=== PATIENT | female | born 1965 | race Caucasian/White ===

== ENCOUNTER 2020-02-20 16:52 | Outpatient (CLI) | payer OTHER, SELFPAY ==
--- NOTE | ~2020-02-20 | XR_ITS ---
XR lumbar spine min 4V 02/20/2020 18:02 Indication: Low back pain Procedure: 5 views lumbar spine Comparison: 09/05/2016 Findings: There is disc narrowing at all lumbar levels. There is moderate multilevel facet hypertroph y of the mid and lower lumbar spine. There is grade 1 degenerative spondylolisthesis at L5-S1. No acu te fracture or traumatic malalignment. Vertebral body heights are maintained. Impression: 1: Moderate lumbar spondylosis. Reviewed, dictated and finalized at location A. Impression: 1: Moderate lumbar spondylosis.
--- NOTE | ~2020-02-20 | XR_ITS ---
XR hip RT min 2V 02/20/2020 18:01 Indication: Arthritis. Right hip pain. Procedure: 4 views right hip including AP pelvis Comparison: 09/05/2016 Findings: There is mild-moderate osteoarthritis of the hips. Pelvic rings are intact. No acute fractu re or traumatic malalignment. No significant soft tissue abnormality. Sacral foramen are symmetric. Impression: 1: Mild-moderate symmetric osteoarthritis of the hips. Reviewed, dictated and finalized at location A. Impression: 1: Mild-moderate symmetric osteoarthritis of the hips.
== END 2020-02-20 16:53 | disposition home or self-care (01) ==
LOC: ANHIMG 16:55
PROVIDERS: PCP Family Medicine; Visit Provider Chiropractor
DX: M19.90 Unspecified osteoarthritis, unspecified site (principal); M47.896 Other spondylosis, lumbar region; M16.0 Bilateral primary osteoarthritis of hip
CPT/HCPCS: 72110; 73502

== ENCOUNTER → 2020-07-18 09:59 | Outpatient (CLI) | payer OTHER, SELFPAY ==
--- NOTE | ~2020-07-18 | MR_ITS ---
EXAMINATION: MR lumbar spine wo con DATE: 07/18/2020 10:42 INDICATION: Low back pain. TECHNIQUE: Magnetic resonance imaging (MRI) of the lumbar spine was performed without intravenous con trast. Sequences included sagittal T2-weighted FSE, sagittal T2-weighted FS FSE, sagittal T1-weighted FSE, and axial T2-weighted FSE. COMPARISON: Lumbar spine radiographs 02/20/2020 FINDINGS: There is 5 degrees levocurvature of lumbar spine. There is 3 mm anterolisthesis of L3 on L4 and L5 on S1. There are Schmorl's nodes at most levels. There is mildly decreased disc height at L2- L3 and L3-L4, moderately decreased disc height at L4-L5, and mildly decreased disc at L5-S1. The dist al spinal cord signal intensity is normal. The conus medullaris is at L1. The following disc levels a re specifically discussed: L1-L2: The disc is bulging and has an annular fissure. There is mild bilateral facet joint osteoarthr itis. There is mild bilateral neural foraminal stenosis. There is mild central canal stenosis. L2-L3: The disc is bulging. There is mild bilateral facet joint osteoarthritis. There is mild bilater al neural foraminal stenosis. There is mild central canal stenosis. L3-L4: The disc is bulging and has an annular fissure. There is mild bilateral facet joint osteoarthr itis. There is mild bilateral neural foraminal stenosis. There is mild central canal stenosis. L4-L5: The disc is bulging and has an annular fissure. There is severe bilateral facet joint osteoart hritis. There is mild bilateral neural foraminal stenosis. There is mild central canal stenosis. L5-S1: The disc is bulging. There is severe bilateral facet joint osteoarthritis. There is mild left neural foraminal stenosis. There is mild central canal stenosis. IMPRESSION: 1. Moderate lumbar spondylosis. Reviewed, dictated and finalized at location A.
== END ==
PROVIDERS: PCP Family Medicine; Visit Provider Orthopaedic Surgery
DX: M54.5 Low back pain (principal); M47.816 Spondylosis without myelopathy or radiculopathy, lumbar region
CPT/HCPCS: 72148

== ENCOUNTER 2021-08-23 15:03 | Outpatient (CLI) | payer OTHER, SELFPAY ==
--- NOTE | ~2021-08-23 | MM_ITS ---
EXAMINATION: MM screening du BI w larry HISTORY: Screening mammogram TECHNIQUE: Craniocaudal and mediolateral oblique 3-D tomosynthesis images were obtained and synthetic 2-D images were generated. CAD analysis was submitted and interpreted. COMPARISON: 09/12/2017, 10/07/2014 bilateral digital screening mammogram examinations BREAST PARENCHYMAL COMPOSITION: There are scattered areas of fibroglandular density. FINDINGS: There is no evidence of suspicious mass, calcification, or architectural distortion to sugg est malignancy in either breast. There has been no suspicious interval change. IMPRESSION: 1. No mammographic evidence of malignancy. 2. Recommend routine screening mammography in one year. BI-RADS Category 1: Negative Reviewed, dictated and finalized at location A.
== END 2021-08-23 15:04 | disposition home or self-care (01) ==
LOC: ANHIMG 15:06
PROVIDERS: PCP Family Medicine; Visit Provider Obstetrics & Gynecology
DX: Z12.31 Encounter for screening mammogram for malignant neoplasm of breast (principal)
CPT/HCPCS: 77063; 77067

== ENCOUNTER → 2022-03-26 07:25 | Outpatient (CLI) | payer OTHER, SELFPAY ==
--- NOTE | ~2022-03-26 | XR_ITS ---
EXAMINATION: XR_RIBSBICXR1_CR DATE: 03/26/2022 08:50 INDICATION: Dorsalgia TECHNIQUE: A frontal inspiratory view of the chest and 3 views of the left ribs and 3 views of the ri ght ribs were obtained. COMPARISON: None FINDINGS: No rib fractures identified. No pneumothorax. No focal infiltrates, pleural effusion or pulmonary raji ma. Cardiomediastinal silhouette is normal. IMPRESSION: 1. No rib fracture or acute cardiopulmonary disease. Reviewed, dictated and finalized at location A.
--- NOTE | ~2022-03-26 | XR_ITS ---
EXAMINATION: XR thoracic spine 3V, XR lumbar spine 2-3V DATE: 03/26/2022 08:50 INDICATION: Dorsalgia TECHNIQUE: 1. AP, lateral and lateral swimmers views of the thoracic spine were obtained. 2. AP and lateral views of the lumbar spine and cone-down lateral view of the lumbosacral junction we re obtained. COMPARISON: None FINDINGS: Thoracic spine: 9 degrees upper thoracic levocurvature measured at T1 and T5. Sagittal alignment is normal. Vertebral body heights are normal. Moderate disc height loss at multiple levels in the thoracic lower cervical spine. No fracture identified. Paravertebral soft tissues and visualized lungs are unremarkable. Hea rt size is normal. Lumbar spine: Alignment is normal. Vertebral body heights are normal. Moderate disc height loss at L2-L3 and L4-L5. Mild disc height loss at L1-L2 and L3-L4. Moderate to severe lower lumbar facet osteoarthritis. Sacr um and bilateral sacroiliac joints are normal. No fracture identified. Normal bowel gas pattern. IMPRESSION: Moderate spondylosis of the lower cervical through the thoracic and lumbar spine. Reviewed, dictated and finalized at location A. IMPRESSION: Moderate spondylosis of the lower cervical through the thoracic and lumbar spin e.
--- NOTE | ~2022-03-26 | XR_ITS ---
EXAMINATION: XR abdomen/kub 1V DATE: 03/26/2022 08:50 INDICATION: Flank pain and abdominal pain. TECHNIQUE: A supine view of the abdomen on 2 radiographs was obtained. COMPARISON: 01/31/2006 FINDINGS: Normal bowel gas pattern with no dilated loops of bowel to suggest obstruction. No suspicious calcifi cations in the abdomen or pelvis. Lung bases are clear with mild eventration along the right hemidiap hragm. Heart size is normal. Moderate lumbar spondylosis. Bilateral hip osteoarthritis, mild on the l eft and moderate on the right. IMPRESSION: 1. Normal bowel gas pattern. Reviewed, dictated and finalized at location A.
== END ==
PROVIDERS: PCP Family Medicine; Visit Provider Physician Assistant
DX: R07.81 Pleurodynia (principal); R10.9 Unspecified abdominal pain; M47.892 Other spondylosis, cervical region; M47.894 Other spondylosis, thoracic region; M47.896 Other spondylosis, lumbar region
CPT/HCPCS: 71111; 72072; 72100; 74018

== ENCOUNTER 2023-03-31 13:47 | Outpatient (CLI) | payer OTHER, SELFPAY ==
--- NOTE | 2023-03-31 15:07 | ECG_ITS ---
Measurements Intervals [place] Rate: 76 P: 26 WV: 150 QRS: 20 QRSD: 94 T: 37 QT: 356 QTc: 401 Interpretive Statements SINUS RHYTHM INCOMPLETE RIGHT BUNDLE BRANCH BLOCK BORDERLINE ECG NO PREVIOUS ECG AVAILABLE FOR COMPARISON Electronically Signed On 03-31-2023 15:26:53 CDT by Alvin Pearson D.O.
[2023-03-31 15:39] LABS: Basophils Absolute Auto 0.1 K/mm3 (0.0-0.1); Basophils Percent Auto 0.9 % (0.2-1.2); Eosinophils Absolute Auto 0.2 K/mm3 (0-0.3); Eosinophils Percent Auto 2.9 % (0-4.4); Hemoglobin 13.4 g/dL (12.0-15.0); Immature Granulocyte Absolute 0.05 K/mm3 (0.00-0.031); Immature Granulocyte Percent A 0.9 % (0-0.5); Lymphocytes Percent Auto 23.4 % (18.3-44.2); Mean Corpuscular HGB Conc 31.9 g/dl (32-36); Mean Corpuscular Hemoglobin 29.3 pg (26-34); Mean Corpuscular Volume 91.7 fl (80-100); Mean Platelet Volume 9.3 fl (7.4-10.4); Monocytes Absolute Auto 0.6 K/mm3 (0.1-0.6); Monocytes Percent Auto 10.3 % (2.6-8.5); Neutrophils Absolute Auto 3.4 K/mm3 (1.3-6.7); Neutrophils Percent Auto 61.6 % (45.5-73.1); Platelet Count Result 318 k/mm3 (150-375); Red Blood Count 4.58 M/mm3 (4.2-5.4); Red Cell Distribution Width 12.4 % (11.5-14.5); White Blood Count 5.6 K/mm3 (4.5-10.0)
[2023-03-31 15:48] LABS: Albumin Level 4.6 g/dL (3.5-5.1); Anion Gap 4 mmol/L (8-16); Blood Urea Nitrogen 10 mg/dL (7-17); Calcium 9.2 mg/dL (8.4-10.2); Carbon Dioxide 32 mmol/L (22-30); Chloride 103 mmol/L (98-107); Estimated Glomerular Filt Rate > 60; Glucose 89 mg/dL (65-110); Potassium 3.9 mmol/L (3.4-5.0); Sodium 139 mmol/L (137-145)
[2023-03-31 15:51] LABS: Urine Cotinine NEGATIVE
== END 2023-03-31 13:48 | disposition home or self-care (01) ==
LOC: ANHSURGERY 13:51
PROVIDERS: PCP Family Medicine; Visit Provider Orthopaedic Surgery
DX: M16.11 Unilateral primary osteoarthritis, right hip (principal); Z01.818 Encounter for other preprocedural examination; I45.10 Unspecified right bundle-branch block
CPT/HCPCS: 80048; 80307; 82040; 83036; 85025; 87081; 93005

== ENCOUNTER 2023-04-14 07:42 | Outpatient (CLI) | payer OTHER, SELFPAY ==
--- NOTE | ~2023-04-14 | NM_ITS ---
EXAMINATION: NM morelia stress w perfusion DATE: 04/14/2023 09:46 INDICATION: Chest pain. TECHNIQUE: Rest images were obtained following intravenous administration of 10.9 mCi Tc99m tetrofosm in (Myoview). The patient was infused intravenously with Lexiscan (regadenoson). Then, 30.44 mCi Tc99 m tetrofosmin (Myoview) was administered intravenously, and stress images were obtained. Data was rec onstructed into short axis and horizontal and vertical long axis SPECT images. Gated SPECT images wer e also obtained. COMPARISON: None. FINDINGS: There is no definite reversible or fixed perfusion abnormality to suggest ischemia or infar ction. There is no segmental wall motion abnormality. Left ventricular ejection fraction measures 6 5%. IMPRESSION: 1. No definite ischemia or infarct. 2. Normal left ventricular ejection fraction measuring 65%. Reviewed, dictated and finalized at location A.
--- NOTE | 2023-04-14 07:54 | EST_ITS ---
Patient Info Name: Valerie Rojas Age: 57 years : 1965 Gender: Female Ht: 65 in Wt: 155 lbs BSA: 1.81 m2 HR: 71 bpm BP: 118 / 71 mmHg Heart Rhythm: Sinus Rhythm Exam Date: 04/14/2023 8:42 AM Exam Location: [facility] [place] Stress Patient Status: Outpatient Admit Date: 04/14/2023 Staff Ordering Physician: Christo Voss PA-C Attending Provider: Christo Voss PA-C Exercise Technologist: Zulema Henderson CT Exercise Physician: Alvin Pearson DO Exam Type: CA stress morelia w NM Study Info Indications R07.89 - Other chest pain Z01.810 - Encounter for preprocedural cardiovascular examination A regadenoson stress test was performed. Summary 1. 1. Negative lexiscan stress test for ischemic ST changes by ECG criteria. 2. 2. Stable hemodynamics throughout the test. 3. 3. Nuclear scan to follow and will be reported separately. Please correlate with it. 4. 4. Patient informed of the above results. Protocol: Lexiscan Stress ECG Details Stage: REST Duration (min): 0 min : 52 sec HR (bpm): 67 SBP (mmHg): 118 DBP (mmHg): 71 Stage: REST Duration (min): 5 min : 46 sec HR (bpm): 77 SBP (mmHg): 118 DBP (mmHg): 71 Stage: STAGE 1 Duration (min): 0 min : 59 sec HR (bpm): 102 SBP (mmHg): 116 DBP (mmHg): 68 Stage: RECOVERY Duration (min): 1 min : 0 sec HR (bpm): 98 SBP (mmHg): 116 DBP (mmHg): 68 Stage: RECOVERY Duration (min): 2 min : 0 sec HR (bpm): 92 SBP (mmHg): 116 DBP (mmHg): 68 Stage: RECOVERY Duration (min): 3 min : 0 sec HR (bpm): 89 SBP (mmHg): 125 DBP (mmHg): 65 Stage: RECOVERY Duration (min): 3 min : 11 sec HR (bpm): 91 SBP (mmHg): 125 DBP (mmHg): 65 Rest HR: 77 bpm Peak HR: 104 bpm Rest Sys BP: 118 mmHg Peak Sys BP: 125 mmHg Max Pred HR: 161 bpm % Max Pred HR: 65 % Target HR: 137 bpm Max RPP: 13,000 bpm*mmHg Termination Reason: Completed protocol Cardiac Symptoms: Shortness of breath, Stomach discomfort Total Time: 1 min : 0 sec Rest Castillo BP: 71 mmHg Peak Castillo BP: 65 mmHg Total Dose: 0.4 mg Resting ECG Sinus rhythm, cannot r/o septal infarct, age indeterminate. Stress ECG No ST changes. Arrhythmias None. Report Signatures
== END 2023-04-14 07:43 | disposition home or self-care (01) ==
PROVIDERS: PCP Family Medicine; Visit Provider Physician Assistant
DX: R07.9 Chest pain, unspecified (principal)
CPT/HCPCS: 78452; 93017; A9502; J2785

== ENCOUNTER 2023-04-24 00:48 | Day surgery (SDC) | payer OTHER, SELFPAY ==
[2023-03-31 14:17] VITALS: BMI 26.4
--- NOTE | 2023-03-31 14:31 | PC.NURSE ---
Report to the Outpatient Waiting Room, entrance under the green pavilion located off [facility], at time __6:00AM on date __04/24/23 . Planned Procedure Time: __7:30AM . Time changes happen often and if your time is changed the preop area will call you the afternoon before. - You and your visitor will be asked to self-screen and do not enter if you have any COVID symptoms. - A mask is optional within the hospital at this time. Patients may have clear liquids (water, carbonated beverages, clear teas, apple juice) until 3 hours prior to surgery with a maximum of 20 ounces. - No food from midnight until time of surgery Take the following medications with a SIP of water the morning of surgery: ___DULOXETINE DO NOT STOP ANY OF YOUR OTHER PRESCRIPTION MEDICATIONS PRIOR TO SURGERY ?EXCEPT THE FOLLOWING Medications to discontinue per physician ____HOLD DICLOFENAC 7 DAYS PRE-OP PER DR BIANCHI Date to take last dose____04/17/23 Please no make-up, nail mongolian, hairspray, perfume, deodorant, or body powder the day of surgery. No jewelry (including any body piercings) or valuables the day of surgery, leave them at home. Please take a shower or bath the night before, or the morning of, surgery with an antibacterial soap. Wear comfortable, loose fitting clothing. Children are encouraged to wear pajamas. - Jewelry must be removed prior to entering the operating room. Rings and piercings that are not removed may be cut off. - The hospital will not accept responsibility for valuables. - Please leave all valuables, including medications, at home the day of surgery. If you are going home after surgery, a licensed driver/sales workers must drive you home. - NO public transportation without another adult if you receive anesthesia. - We recommend that an adult stay with you for 24 hours following discharge. - We also recommend that you do not drive, make important decision, drink alcoholic beverages, or take any drugs that were not prescribed by your health care provider for at least 24 hours after your discharge time. Follow any additional instructions given to you from your surgeon. If you or anyone in your household have experienced Covid symptoms in the past week, please notify your surgeon or the nurse liaison at the phone number below for possible testing. Telephone instructions given to __PATIENT and asked if any additional questions and then verbalized understanding. Patient advised to call surgeon office or pre surgery nurse liaison [phone] if any additional questions.
[2023-04-24] VITALS (13 sets, daily range): BP systolic 88–113; BP diastolic 46–67; PULSE 77–94; RESP 8–17; TEMP 36.2–36.9; O2SAT 95–100
--- NOTE | ~2023-04-24 | XR_ITS ---
EXAMINATION: XR surgery orthopedic DATE: 04/24/2023 10:55 INDICATION: Right hip arthroplasty TECHNIQUE: Single fluoroscopic AP view of the right hip. 60 seconds of fluoroscopy. FINDINGS: There is a right total hip arthroplasty in expected position. Subcutaneous gas with soft t issue swelling are consistent with recent surgery. IMPRESSION: 1. Recent right total hip arthroplasty. Reviewed, dictated and finalized at location []
--- NOTE | ~2023-04-24 | XR_ITS ---
EXAMINATION: XR hip RT 1V w AP pelvis DATE: 04/24/2023 11:18 INDICATION: Right total hip arthroplasty TECHNIQUE: 2 views right hip FINDINGS: There is a right total hip arthroplasty in expected position. Subcutaneous gas with soft t issue swelling are consistent with recent surgery. IMPRESSION: 1. Recent right total hip arthroplasty. Reviewed, dictated and finalized at location []
[2023-04-24] MEDS: ACETAMINOPHEN 500 MG TABLET 1000 MG PO ×3 (06:25→18:11)
[2023-04-24] MEDS: VANCOMYCIN 1,000 MG/NS 250 ML BAG 250 MG IVPB (06:48)
[2023-04-24] MEDS: LACTATED RINGERS 1,000 ML 30 ML IV CONT ×3 (06:48→11:40)
--- NOTE | 2023-04-24 06:50 | P.PNAN_ITS ---
Anes - Initial Pre Proc Eval Procedure: Operation Date: 04/24/23 07:30 Proposed Procedures p Right Total Hip Arthroplasty, Anterior Approach - Margarito Champion MD Date/Time: 04/24/23 06:50 Surgeon: Margarito Champion MD Pre Op Diagnosis: O.A. right Hip Patient Data Age: 58 Gender: F Height: 1.65 m Weight: 72.1 kg Allergies Allergy/AdvReac Type Severity Reaction Status Date / Time No Known Allergies Allergy Verified 04/24/23 06:15 Home Medications Medication Instructions Recorded Confirmed Type diclofenac sodium 75 mg 75 mg PO BID 03/31/23 04/24/23 History tablet,delayed release duloxetine 30 mg capsule,delayed 30 mg PO EVERY OTHER DAY 03/31/23 04/24/23 History release (Cymbalta) lamotrigine 150 mg tablet 150 mg PO HS 03/31/23 04/24/23 History Patient hx anesthesia problems: none Family hx anesthesia problems: none Results Review: All pre-operative results and documents have been reviewed as part of the pre- operative evaluation. [facility] Past Medical History Medical History (Updated 04/24/23 @ 06:51 by Marcelo Ponce MD) Depression Family History Family History Father Hypertension Family history of coronary artery disease Social History Social History Smoking packs per day: 0.5 Smoking cigarettes per day: 10.0 Years smoked: 5 Smoking pack-years: 2.50 Smoking status: Former smoker Tobacco type: cigarettes Smoking end date: 05/06/95 Alcohol intake: never Substance use: never Living arrangements: with family Additional living arrangements comments: [place] Occupation/Education: occupation Gender identity (if verbalized by the patient): Female Sexual Orientation (if Verbalized by the Patient): Straight or Heterosexual Spiritual care concerns: No Anes - Eval Final PreProcedure Day of Procedure 04/24/23 06:50 Patient weight: overweight Heart: regular rate and rhythm Lungs: clear to auscultation Airway: Mallampati scale class II Neurological: alert and oriented Last oral intake: >/= 8 hours ASA classification: II Emergent: no Anesthetic plan: proceed Anesthesia type and monitoring: general ETT Results Review: All pre-operative results and documents have been reviewed as part of the pre- operative evaluation. Informed Consent: The patient's anesthetic plan and its attendant risks and benefits were discussed with the patient/family/POA. Questions were solicited and answers provided to the satisfaction of the patient/family/POA.
[2023-04-24] MEDS: TRANEXAMIC ACID 1,000MG/ISO100 1,000 MG/100 ML BAG 200 MG IVPB (07:12)
--- NOTE | 2023-04-24 07:17 | WPDHPUPDATE1 ---
History and Physical Update Update Date/Time: 04/24/23 07:17 History and Physical has been reviewed, including an updated exam of the patient. There are NO changes in the patient's condition. Risks, benefits, and alternatives have been discussed and questions answered. Patient agrees to proceed with procedure.
--- NOTE | 2023-04-24 07:29 | P.HP_ITS ---
H&P: HPI History of Present Illness Date/Time: 04/24/23 07:29 Chief Complaint: right hip DJD Narrative: 58 y/o who presents for right anterior total hip arthroplasty. She has severe arthritis in the hip and has failed non-surg treatment Review of Systems Review of Systems: All systems reviewed & are unremarkable except as noted in HPI and below PMFSH Past Medical History Medical History (Updated 04/24/23 @ 06:51 by Marcelo Ponce MD) Depression Family History Family History Father Hypertension Family history of coronary artery disease Social History Social History Smoking packs per day: 0.5 Smoking cigarettes per day: 10.0 Years smoked: 5 Smoking pack-years: 2.50 Smoking status: Former smoker Tobacco type: cigarettes Smoking end date: 05/06/95 Alcohol intake: never Substance use: never Living arrangements: with family Additional living arrangements comments: [place] Occupation/Education: occupation Gender identity (if verbalized by the patient): Female Sexual Orientation (if Verbalized by the Patient): Straight or Heterosexual Spiritual care concerns: No Meds Home Medications and Allergies Home Medications Medication Instructions Recorded Confirmed Type diclofenac sodium 75 mg 75 mg PO BID 03/31/23 04/24/23 History tablet,delayed release duloxetine 30 mg capsule,delayed 30 mg PO EVERY OTHER DAY 03/31/23 04/24/23 History release (Cymbalta) lamotrigine 150 mg tablet 150 mg PO HS 03/31/23 04/24/23 History Allergies Allergy/AdvReac Type Severity Reaction Status Date / Time No Known Allergies Allergy Verified 04/24/23 06:15 Vital Signs Vital Signs - 24 hr 04/24/23 06:51 Temperature 36.3 C L Pulse Rate 87 Respiratory Rate 16 Blood Pressure 106/64 Pulse Oximetry 99 Oxygen Delivery Room Air Exam Narrative: 58 y/o female, alert, she has severe fabiana n with ROM of right hip Resp: Auscultation: clear to auscultation bilaterally Cardio: Rate: regular rate Rhythm: regular rhythm Assessment and Plan Assessment and plan (1) Osteoarthritis of right hip: Code(s): M16.11 - Unilateral primary osteoarthritis, right hip Status: Acute Plan 58 y/o female with severe OA right hip. Patient feels she is ready for total hip arthroplasty. Surgical procedure as well as risks and complications were discussed and we will proceed.
[2023-04-24] MEDS: ceFAZolin 2 GM/D5W 50 ML 2 GM/50 ML BAG IVPB (07:40)
[2023-04-24] MEDS: ceFAZolin SODIUM 1 GM VIAL 3 GM (08:15)
[2023-04-24] MEDS: TRANEXAMIC ACID 1,000 MG/10 ML AMPUL 1000 MG IV PUSH (10:45)
[2023-04-24] MEDS: KETOROLAC 15 MG/ML VIAL (*BKC) IV PUSH ×3 (10:47→22:26)
[2023-04-24] MEDS: ceFAZolin SODIUM 1 GM VIAL 2 GM IV PUSH (10:48)
--- NOTE | 2023-04-24 11:02 | W.PM.PROC2 ---
Procedure Note - Detailed Date of Procedure 04/24/23 Pre-op Diagnosis O.A. right Hip Post-op Diagnosis Same Procedure Performed Right anterior approach right total hip arthroplasty Surgeon Margarito Champion MD [facility] Anesthesia General Description of Procedure Patient was brought to the operating room and general anesthesia was administered. She received 2 g of Ancef weight based vancomycin 1 g of tranexamic acid preoperatively. The feet were padded and the boots applied [facility] and the right hip prepped draped usual fashion. A 10 cm longitudinal incision was made starting 3 cm lateral to the ASIS. Dissection was carried down through the subcutaneous fat exposing the fascia over the tensor fascia lior which was longitudinally incised and elevated off the anterior 1/2 of the TFL muscle. The interval between TFL and rectus femoris was developed. Crossing vessels of ascending lateral femoral circumflex vessels were ligated with suture divided. A retractor was placed anterior to the capsule the hip the hip abducted internally rotated and the gluteus minimus elevated off the lateral capsule. Inverted T capsulotomy was performed. Femoral neck osteotomy was made according to preoperative templating. Femoral head was removed and measured 48 mm in diameter. It was severely arthritic with huge hypertrophic peripheral osteophytes particularly anteriorly. The acetabular labrum was excised and the fovea which was extremely deep due to medial osteophyte that was prominent was removed and we curetted the remaining articular cartilage in the areas present. X-ray fluoro showed that our neck cut was a little bit long still. We removed about 3 or 4 mm of medial neck at this time. The femur was externally rotated extended and the interval between conjoined tendon and piriformis incised allowing the piriformis to flipped and this allowed the conjoined tendon to recess a little bit giving adequate mobilization anteriorly with the proximal femur. With the femur back in horizontal position traction external rotation acetabular exposure. We medialized under fluoroscopic guidance with the 44 Reamer and worked up to the 47 taking care to maintain central reaming. The cancellous bone inside the acetabulum was quite soft but the rim bone was dense and cortical like. We trialed with a 47 and was a good fit. We carefully reamed with a 48 to eliminate the peripheral lip at the introitus and the 48 trial had a good fit. We chose the 48 pinnacle cup which was impacted at 40? of abduction and anteversion such that the anterior rim was just under the anterior edge of the acetabulum posterior superiorly it was about 4 or 5 mm proud. Posteriorly it was about 2 mm proud. An excellent Press-Fit was achieved. We did place a screw into the ilium and seated the 32 inner diameter polyethylene liner. The leg was externally rotated and extended with the table hook in place. The cancellous bone inside the femur was on the softer side making access straightforward. We broached up to a size 5 and there was still ample rotation of play we broached the 6 and this had no rotational play with torque from the incised done. We trialed with the +5 standard offset. This lengthened her about 5-6 mm more than the other side I could see that the top of the broach was not low the saddle. The canal fill looked very good with the 6 broach. We calcar planed and countersunk the broach another 2.5-3 mm and trialed again with a +5. We were still about 3 or 4 mm long it appeared on the fluoroscopic AP pelvis and the Shuck was looser than desired. I could dislocate her hip with thumb and index finger on the bone hook from an externally rotated position. Therefore, we trialed with the high offset neck and the +1 head and this gave us a more appropriate feel with Shuck. It was certainly not tight. Under fluoro this gave us an offset matched the other side and lengthened
--- NOTE | 2023-04-24 11:24 | SUR.OPER ---
total u/a 150ml clear yellow EBL cell saver 250ml blood return
[2023-04-24] MEDS: fentaNYL CITRATE INJ (*CRX) 100 MCG/2 ML VIAL 25 MCG IV PUSH ×4 (11:25→11:39)
--- NOTE | 2023-04-24 12:04 | P.OPB_ITS ---
Procedure Note - Brief Procedure Note - Brief Date of procedure: 04/24/23 O.A. right Hip Procedure performed: Right anterior total hip arthroplasty Surgeon: JAX Joseph Description of procedure: 58-year-old female underwent right anterior total hip arthroplasty on 04/24. I was involved the procedure Including positioning the patient on OR table and 1 st assisting to the time of surgery. total time spent was 3-1/2 hours. Urine output (mL): -150.0
--- NOTE | 2023-04-24 12:06 | PM.IMHP ---
H&P: HPI History of Present Illness Date/Time: 04/24/23 12:06 Chief Complaint: Right hip DJD Narrative: 58-year-old female presents today for right anterior total hip arthroplasty. Patient has been having progressively worsening symptoms over the last 2 years. At this point she has severe type 1 osteoarthritis and mild acetabular dysplasia. She has rather severe symptoms on a daily basis. She has limited range of motion of the hip as well. She feels that her symptoms have not improved from the use of anti-inflammatories. She is miserable at this point and feels she is ready to proceed with total hip arthroplasty. Review of Systems Review of Systems: All systems reviewed & are unremarkable except as noted in HPI and below PMFSH Past Medical History Medical History Depression Family History Family History Father Hypertension Family history of coronary artery disease Social History Social History Smoking packs per day: 0.5 Smoking cigarettes per day: 10.0 Years smoked: 5 Smoking pack-years: 2.50 Smoking status: Former smoker Tobacco type: cigarettes Smoking end date: 05/06/95 Alcohol intake: never Substance use: never Living arrangements: with family Additional living arrangements comments: [facility] Occupation/Education: occupation Gender identity (if verbalized by the patient): Female Sexual Orientation (if Verbalized by the Patient): Straight or Heterosexual Spiritual care concerns: No Meds Home Medications and Allergies Home Medications Medication Instructions Recorded Confirmed Type diclofenac sodium 75 mg 75 mg PO BID 03/31/23 04/24/23 History tablet,delayed release duloxetine 30 mg capsule,delayed 30 mg PO EVERY OTHER DAY 03/31/23 04/24/23 History release (Cymbalta) lamotrigine 150 mg tablet 150 mg PO HS 03/31/23 04/24/23 History Allergies Allergy/AdvReac Type Severity Reaction Status Date / Time No Known Allergies Allergy Verified 04/24/23 06:15 Vital Signs Vital Signs - 24 hr 04/24/23 06:51 04/24/23 11:15 04/24/23 11:30 Temperature 36.3 C L 36.2 C L Pulse Rate 87 87 85 Respiratory Rate 16 12 12 Blood Pressure 106/64 92/55 L 97/67 L Pulse Oximetry 99 100 100 Oxygen Delivery Room Air Simple Face Mask Simple Face Mask Oxygen Flow Rate 8 8 04/24/23 11:45 04/24/23 12:00 Temperature Pulse Rate 84 85 Respiratory Rate 8 L 12 Blood Pressure 99/61 L 93/56 L Pulse Oximetry 100 95 Oxygen Delivery Simple Face Mask Room Air Oxygen Flow Rate 8 Exam Narrative: 58-year-old female alert pleasant. She is 5 ft 5 and 157 lb. Hip range of motion on the right, flexion to 100, she has about a 10 degree flexion contracture when she is supine. Internal rotation to 15? external rotation to 30. Range of motion causes her significant groin pain anterior thigh pain. There is no tenderness over the greater trochanter. She has normal abduction strength lateral position. 2+ dorsalis pedis and posterior artery pulse palpable. No numbness or tingling in the right lower extremity. Resp: Auscultation: clear to auscultation bilaterally Cardio: Rate: regular rate Rhythm: regular rhythm Assessment and Plan Assessment and plan (1) Osteoarthritis of right hip: Code(s): M16.11 - Unilateral primary osteoarthritis, right hip Status: Acute Plan 4-year-old female who has severe osteoarthritis of the right hip with severe symptoms on a daily basis. Again she feels this point she is ready proceed with total arthroplasty. Surgical procedure as well as risks and complications were discussed in detail questions were answered and we will proceed. She will stop her diclofenac 1 week prior to surgery. She will see her primary care doctor for pre-surgical clearance. Her nasal swab
--- NOTE | 2023-04-24 12:33 | ADMGEN ---
This patient, Valerie Rojas, was admitted to Medical Room 252-01. Patient/family oriented to hospital policies and general routines including ID bracelet, bed and alarms, visiting hours, pain management, procedures, bathroom and other care routines, personal items, smoking policy, room service/diet, and visiting hours. Information on how to activate the Rapid Response Team has been discussed. Patient/Family are encouraged to report perceived risks to care and to ask questions if they do not understand what they are told or what they should do.
[2023-04-24] MEDS: SODIUM CHLORIDE 0.9% IV 1,000 ML 125 ML IV CONT (13:15)
[2023-04-24] MEDS: LACTATED RINGERS 500 ML 999 ML IV CONT (15:17)
[2023-04-24 15:19] LABS: Hematocrit 35.5 % (37.0-47.0); Hemoglobin 11.3 g/dL (12.0-15.0)
[2023-04-24] MEDS: ONDANSETRON INJ 4 MG/2 ML VIAL IV PUSH ×2 (16:00→20:10)
[2023-04-24] MEDS: ceFAZolin 1 GM/NS 50 ML 1 GM/50 ML BAG IVPB ×2 (16:22→23:56)
[2023-04-24] MEDS: DULoxetine HCL 30 MG CAPSULE.DR PO (16:22)
[2023-04-24] MEDS: oxyCODONE HCL (*CRX) 5 MG TAB IR PO ×2 (16:22→21:03)
--- NOTE | 2023-04-24 16:28 | PCPTNOTE ---
On 04/24/23, the student, [Sharyn Smith], provided care and completed [facility] documentation on this patient. I have reviewed the student's documentation and agree with the findings.
[2023-04-24] MEDS: VANCOMYCIN 1,000 MG/NS 250 ML 1,000 MG/250 ML BAG 250 MG IVPB (18:11)
--- NOTE | 2023-04-24 19:23 | PM.IMCN ---
Assessment and Plan Assessment and plan (1) Status post total hip replacement, right: Code(s): Z96.641 - Presence of right artificial hip joint Status: Acute Assessment and Plan: Postop care per Orthopedic surgery DVT prophylaxis as per orthopedic surgery the patient is on Eliquis. The patient had some postop nausea. I offered a scopolamine patch if needed pain management as per orthopedic surgeon. Continue with IV fluids for now as her blood pressure was low. The patient was also having some nausea and had poor oral intake. PT OT per orthopedic physician (2) Anxiety and depression: Code(s): F41.9 - Anxiety disorder, unspecified; F32.A - Depression, unspecified Status: Acute Assessment and Plan: Continue with Cymbalta and Lamictal Plan Thank you for allowing us to consult on this patient. Will continue Co managed along side of you. HPI Data of Consult Consult date: 04/24/23 Requesting Physician: Margarito Champion MD Primary Care Provider: Ramón Soria MD Consult Narrative Narrative: Valerie Rojas is a 58 year old female who has had severe arthritis to her right hip. She has failed nonsurgical treatment. The patient underwent a right anterior total hip arthroplasty. Please see operative report and anesthesia. The patient had some postop nausea. The patient also became hypotensive. IV fluids continued. The hospitalist group was consulted due to her nausea and hypotension. Date of consult 04/24/2023. Review of Systems Review of Systems: All systems reviewed & are unremarkable except as noted in HPI and below Constitutional: Constitutional: Reports as per HPI and Reports no additional constitutional complaints Eyes: Eyes: Reports as per HPI and Reports no additional eye complaints ENT: Reports system reviewed and no additional complaints, except as documented and Reports Normal hearing present Cardiovascular: Cardiovascular: Reports no additional cardiovascular complaints Respiratory: Respiratory: Reports no additional respiratory complaints and Reports no additional respiratory complaints Gastrointestinal: Gastrointestinal: Reports as per HPI and Reports no additional gastrointestinal complaints Musculoskeletal: Musculoskeletal: Reports no additional musculoskeletal complaints Integumentary/Breasts: Skin/Breast: Reports system reviewed and no additional complaints, except as docu and Reports as per HPI Neurologic: Reports system reviewed and no additional complaints, except as documented, Reports as per HPI and Reports Normal hearing present Psychiatric: Psychiatric: Reports no additional psychiatric complaints and Reports as per HPI Endocrine: Endocrine: Reports no additional endocrine complaints Hematologic/Lymphatic: Hematologic/Lymphatic: Reports no additional hematologic/lymphatic complaints Allergic/Immunologic: Allergic/Immunologic: Reports no additional allergic/immunologic complaints [facility] Past Medical History Medical History (Updated 04/24/23 @ 23:31 by Yue Clement NP) Anxiety and depression Depression HLD (hyperlipidemia) Surgical History Surgical History (Updated 04/24/23 @ 23:32 by Yue Clement NP) H/O elbow surgery History of total hip replacement Status post total hip replacement, right Family History Family History Father Hypertension Family history of coronary artery disease Social History Social History (Updated 04/24/23 @ 23:33 by Yue Clement NP) Social History: The patient is and lives with her . She has 2 children. She works for the [employer]. Lifelong nonsmoker. She does not use any alcohol marijuana or illicit drugs. Code status full code Smoking packs per day: 0.5 Smoking cigarettes per day: 10.0 Years smoked: 5 Smoking pack-years: 2.50 Smoking status: Never smoker Tobacco type: cigarettes Smo
[2023-04-24] MEDS: SENNA/DOCUSATE SODIUM TABLET 2 TAB PO (21:03)
[2023-04-24] MEDS: lamoTRIgine 50 MG TABLET 150 MG PO (21:03)
[2023-04-24] MEDS: FAMOTIDINE 20 MG TABLET PO (21:13)
[2023-04-24] MEDS: SIMETHICONE 80 MG TAB.CHEW PO (22:26)
[2023-04-25] MEDS: SODIUM CHLORIDE 0.9% IV 1,000 ML 125 ML IV CONT (00:22)
[2023-04-25] MEDS: ACETAMINOPHEN 500 MG TABLET 1000 MG PO ×3 (00:30→11:42)
[2023-04-25] MEDS: oxyCODONE HCL (*CRX) 5 MG TAB IR PO ×2 (00:31→05:42)
[2023-04-25 05:31] VITALS: BP 100/51; PULSE 97; RESP 17; TEMP 36.9; O2SAT 95
[2023-04-25 05:42] LABS: Basophils Percent Auto 0.2 % (0.2-1.2); Hematocrit 28.9 % (37.0-47.0); Hemoglobin 9.2 g/dL (12.0-15.0); Immature Granulocyte Absolute 0.02 K/mm3 (0.00-0.031); Immature Granulocyte Percent A 0.3 % (0-0.5); Lymphocytes Percent Auto 9.3 % (18.3-44.2); Mean Corpuscular HGB Conc 31.8 g/dl (32-36); Mean Corpuscular Hemoglobin 29.8 pg (26-34); Mean Corpuscular Volume 93.5 fl (80-100); Mean Platelet Volume 9.4 fl (7.4-10.4); Monocytes Absolute Auto 0.7 K/mm3 (0.1-0.6); Monocytes Percent Auto 11.4 % (2.6-8.5); Neutrophils Absolute Auto 5.1 K/mm3 (1.3-6.7); Neutrophils Percent Auto 78.8 % (45.5-73.1); Platelet Count Result 164 k/mm3 (150-375); Red Blood Count 3.09 M/mm3 (4.2-5.4); Red Cell Distribution Width 12.6 % (11.5-14.5); White Blood Count 6.5 K/mm3 (4.5-10.0)
[2023-04-25 05:52] LABS: Anion Gap 3 mmol/L (8-16); Blood Urea Nitrogen 7 mg/dL (7-17); Calcium 7.5 mg/dL (8.4-10.2); Carbon Dioxide 25 mmol/L (22-30); Chloride 111 mmol/L (98-107); Estimated CRCL calculation 66 ml/min; Estimated Glomerular Filt Rate > 60; Glucose 105 mg/dL (65-110); Potassium 3.8 mmol/L (3.4-5.0); Sodium 139 mmol/L (137-145)
[2023-04-25 06:15] LABS: Vitamin D 25 Hydroxy 21.3 ng/mL
--- NOTE | 2023-04-25 06:27 | PM.PNORT ---
Subjective Subjective Date/Time Seen: 04/25/23 06:27 Interval history: Postop day 1 patient is alert. Blood pressure has been running a little low. She was low during the time of surgery which is most likely her norm. She is asymptomatic from the blood pressure. She was up to the restroom multiple times overnight in tolerating this without any symptoms. CBC is noted this morning. Vitamin-D was low and we will supplement that. Drain is out and dressing is dry. Neurovascularly she is intact. Pain is well controlled. We did decrease her oxycodone 2.5 mg. Plan have therapy work with the patient this morning and again this afternoon if she remains doing well plan will be to discharge her home this afternoon. Objective Data Vital Signs Vital Signs: Vital Signs - 24 hr 04/24/23 06:51 04/24/23 11:15 04/24/23 11:30 Temperature 36.3 C L 36.2 C L Pulse Rate 87 87 85 Respiratory Rate 16 12 12 Blood Pressure 106/64 92/55 L 97/67 L Pulse Oximetry 99 100 100 Oxygen Delivery Room Air Simple Face Mask Simple Face Mask Oxygen Flow Rate 8 8 04/24/23 11:45 04/24/23 12:00 04/24/23 12:13 Temperature Pulse Rate 84 85 81 Respiratory Rate 8 L 12 12 Blood Pressure 99/61 L 93/56 L 94/59 L Pulse Oximetry 100 95 95 Oxygen Delivery Simple Face Mask Room Air Room Air Oxygen Flow Rate 8 04/24/23 12:30 04/24/23 12:45 04/24/23 13:15 Temperature 36.4 C 36.6 C 36.3 C L Pulse Rate 82 77 78 Respiratory Rate 16 16 16 Blood Pressure 89/56 L 88/62 L 92/46 L Pulse Oximetry 99 100 98 Oxygen Delivery Oxygen Flow Rate 04/24/23 15:32 04/24/23 14:15 04/24/23 18:13 Temperature 36.4 C L 36.6 C Pulse Rate 77 85 Respiratory Rate 17 17 Blood Pressure 91/49 L 105/55 L Pulse Oximetry 100 100 Oxygen Delivery Room Air Oxygen Flow Rate 04/24/23 21:13 04/24/23 23:20 04/25/23 05:31 Temperature 36.9 C 36.8 C 36.9 C Pulse Rate 91 94 97 Respiratory Rate 17 17 17 Blood Pressure 113/55 L 101/51 L 100/51 L Pulse Oximetry 98 98 95 Oxygen Delivery Oxygen Flow Rate Intake/Output Intake/Output: Intake & Output 04/22/23 04/23/23 04/24/23 04/25/23 23:59 23:59 23:59 23:59 Intake Total 1490 1400 Output Total 50 30 Balance 1440 1370 Meds/Results Medications: Active Medications Generic Name Dose Route Start Last Admin Trade Name Freq PRN Reason Stop Dose Admin Acetaminophen 1,000 mg 04/24/23 12:15 04/25/23 05:41 Acetaminophen 500 Mg Tablet PO 1,000 mg Q6HR SHMUEL Administration Apixaban 2.5 mg 04/25/23 09:00 Apixaban 2.5 Mg Tablet PO Q12HR SHMUEL Celecoxib 200 mg 04/25/23 09:00 Celecoxib 200 Mg Capsule PO DAILY SHMUEL Cephalexin HCl 500 mg 04/25/23 12:00 Cephalexin 500 Mg Capsule PO Q6HR SHMUEL Duloxetine HCl 30 mg 04/24/23 13:00 04/24/23 16:22 Duloxetine Hcl 30 Mg Capsule.Dr PO 30 mg Q48H SHMUEL Administration Ergocalciferol 50,000 units 04/25/23 09:00 Ergocalciferol 50,000 Units Capsule PO WEEKLY SHMUEL Famotidine 20 mg 04/24/23 21:00 04/24/23 21:13 Famotidine 20 Mg Tablet PO 20 mg Q12HR SHMUEL Administration Hydroxyzine HCl 50 mg 04/24/23 12:15 Hydroxyzine Hcl 25 Mg Tablet PO Q4H PRN Itching Cefazolin Sodium 1 gm in 50 mls @ 100 mls/hr 04/24/23 16:00 04/25/23 00:25 Ancef 1 Gm/Ns 50 Ml IVPB 04/25/23 08:29 Infused Q8H SHMUEL Infusion Vancomycin HCl 1,000 mg in 250 mls @ 250 mls/hr 04/24/23 19:00 04/24/23 20:00 Vancomycin 1,000 Mg/Ns 250 Ml IVPB 04/25/23 07:59 Infused Q12H SHMUEL Infusion Sodium Chloride 1,000 mls @ 125 mls/hr 04/24/23 12:50 04/25/23 00:22 Normal Saline Iv IV CONT 125 mls/hr .Q8H SHMUEL Administration Lamotrigine 150 mg 04/24/23 21:00 04/24/23 21:03 Lamotrigine 50 Mg Tablet PO 05/24/23 20:59 150 mg HS SHMUEL Administration Morphine Sulfate 2 mg 04/24/23 12:15 Morphine Sulfate (*Crx) 2 Mg/Ml Inj IV PUSH Q3H PRN Pain Rated 7-10 Naloxone HCl 0.1
[2023-04-25] MEDS: VANCOMYCIN 1,000 MG/NS 250 ML 1,000 MG/250 ML BAG 250 MG IVPB (06:29)
--- NOTE | 2023-04-25 06:33 | PM.DS ---
DS: Admitting Diagnosis Discharge Date 04/25 Admitting Diagnosis Right hip DJD DS: Discharge Diagnosis Discharge Diagnosis (1) Osteoarthritis of right hip: Code(s): M16.11 - Unilateral primary osteoarthritis, right hip Status: Acute DS: Summary Hospital Course Hospital Course: 58-year-old female who underwent right anterior total hip arthroplasty on 04/24. Underwent the procedure without complications. Postoperatively she has been afebrile vital signs are stable. Blood pressure was running approximately 100 over 50s. Patient had the same blood pressure through the time of surgery as well. She was given extra fluids during surgery. She has been asymptomatic from the blood pressure. It is most likely felt this is where she typically will run. She is weight-bearing as tolerated. She was up to the restroom multiple times a day surgery and is comfortable. Pain is well controlled she is on Tylenol as well as oxycodone 2.5 mg. She is on Eliquis for DVT prophylaxis. Postop day 1 her drain was out dressing was dry. Neurovascularly she is intact. She is going to go home with 1 week of Keflex as well Senokot and MiraLax. Patient's vitamin-D was low at 21 and we are supplementing this with high-dose vitamin-D 77593 units weekly. We will also have her start taking Citracal with vitamin-D over the counter. Her bones will soft time surgery and we discussed with her that will set up a bone density when she is doing little better during her recovery. Patient was advised any questions or concerns she is to call the office otherwise we will see her at her appointed date. Time Spent with Patient Time attestation: Total time spent providing and/or coordinating discharge services: DS: Data Data Completed and Pending Labs on day of discharge: Labs from last 24 hours 04/25/23 04/24/23 04/24/23 05:16 15:06 06:33 WBC 6.5 RBC 3.09 L Hgb 9.2 L 11.3 L Hct 28.9 L 35.5 L MCV 93.5 MCH 29.8 MCHC 31.8 L RDW 12.6 Plt Count 164 MPV 9.4 Immature Gran % (Auto) 0.3 Neut % (Auto) 78.8 H Lymph % (Auto) 9.3 L Kaufman % (Auto) 11.4 H Eos % (Auto) 0.0 Baso % (Auto) 0.2 Lymph # (Auto) 0.60 L Kaufman # (Auto) 0.7 H Eos # (Auto) 0.0 Baso # (Auto) 0.0 Abs Immat Gran (auto) 0.02 Absolute Neuts (auto) 5.1 Absolute Nucleated RBC 0.0 Nucleated RBC % 0.0 Sodium 139 Potassium 3.8 Chloride 111 H Carbon Dioxide 25 Anion Gap 3 L BUN 7 Creatinine 0.70 Estim Creat Clear Calc 66 Estimated GFR > 60 Glucose 105 Calcium 7.5 L Vitamin D 25-Hydroxy 21.3 Blood Type O Positive Antibody Screen Negative Discharge Plan Discharge Patient Disposition: Home, Self-Care Discharge Instructions: MARGARITO CHAMPION M.D [facility], [place] [id number] [place] [address] POST-OPERATIVE DISCHARGE INSTRUCTIONS ANTERIOR TOTAL HIP ARTHROPLASTY 1. Move toes/feet up and down every hour while awake. 2. Be up walking every hour while awake. 3. Use cane in hand opposite of side of hip surgery or walker as comfort allows. Avoid sitting in a chair unless eating, receiving visitors or using the toilet. 4. When resting, lie on back with leg elevated above heart to minimize swelling. Significant swelling could indicate a blood clot and if this occurs, call the office (or go to the ER) to have a venous ultrasound performed. 5. Wound Care: Keep dry sponge on wound for 2 weeks. Use minimal tape. 6. Follow weight bearing status as instructed. 7. May shower with dressing off. Stand Alone Forms: General Discharge Instructions Follow-up/Referrals: Margarito Champion MD [Physician] - Keep Reg. Scheduled Appt. Discharge Medications: New acetaminophen 500 mg Tablet 1,000 mg PO Q6HR Qty: 90 0RF Eliquis 2.5 mg Tablet 2.5 mg PO Q12HR Qty: 70 0RF celecoxib [Celebrex] 200 mg
[2023-04-25 07:43] VITALS: RESP 18; O2SAT 95
[2023-04-25] MEDS: ceFAZolin 1 GM/NS 50 ML 1 GM/50 ML BAG IVPB (07:43)
[2023-04-25] MEDS: ERGOCALCIFEROL 50,000 UNITS CAPSULE 50000 UNITS PO (09:06)
[2023-04-25] MEDS: FAMOTIDINE 20 MG TABLET PO (09:07)
[2023-04-25] MEDS: SIMETHICONE 80 MG TAB.CHEW PO ×2 (09:08→13:25)
[2023-04-25] MEDS: oxyCODONE HCL (*CRX) 2.5 MG TAB IR PO ×2 (09:12→13:27)
[2023-04-25] MEDS: APIXABAN 2.5 MG TABLET PO (09:22)
[2023-04-25] MEDS: CELECOXIB 200 MG CAPSULE PO (09:22)
[2023-04-25 10:28] VITALS: BP 102/58; PULSE 86; RESP 16; TEMP 36.8; O2SAT 96
[2023-04-25] MEDS: CEPHALEXIN 500 MG CAPSULE PO (11:42)
--- NOTE | 2023-04-25 12:10 | PM.IMPN ---
Progress Note: A&P Assessment and Plan (1) Status post total hip replacement, right: Code(s): Z96.641 - Presence of right artificial hip joint Status: Acute Assessment and Plan: Postop care per Orthopedic surgery DVT prophylaxis as per orthopedic surgery the patient is on Eliquis. postop nausea improved. 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 pain management as per orthopedic surgeon. EBL 775 mL and received 1 unit PRBC in PACU. BP 102/58, HR 86. Hgb 9.2 PT/OT per ortho. WBAT. Patient plans to go home today. (2) Anxiety and depression: Code(s): F41.9 - Anxiety disorder, unspecified; F32.A - Depression, unspecified Status: Chronic Assessment and Plan: Continue with Cymbalta and Lamictal (3) Vitamin D deficiency: Code(s): E55.9 - Vitamin D deficiency, unspecified Status: Acute Assessment and Plan: Vitamin D 25-OH 21.3. D2 50,000 units weekly plus Oscal-Vit D recommended per Ortho. (4) Anemia due to blood loss, acute: Code(s): D62 - Acute posthemorrhagic anemia Status: Acute Assessment and Plan: Preop Hgb 13.4. EBL 775 mL with 1 unit PRBC given in PACU. Hgb 9.2 today. Monitor for bleeding. Plan Thank you for allowing us to consult on this patient. Call for any questions or concerns. Time Spent With Patient Time: 20 minutes time spent with patient assessment, patient education, review of labs, vitals and nursing documentation. All questions answered to the best of my ability. Subjective Date/time seen: 04/25/23 12:10 Interval history: She reports feeling a little groggy and attributes this to her pain medication. She had postop nausea but thinks it is improved. She has had some dizziness when initially getting out of bed today, but is fine at rest. No chest pain, SOB, RIVERA, palpitations or near syncope. She does not take her blood pressure at home, but knows it is typically not low. Review of Systems Review of Systems: All systems reviewed & are unremarkable except as noted in HPI and below Exam Narrative: General: No acute distress. Adult female lying in bed. Non-toxic appearing. Neuro/Psych: Awake, alert and oriented x4 with clear speech. Pleasant and cooperative. Neutral mood and affect. No focal deficits. Skin: Skin fair, warm, dry and intact without rashes or lesions. Right hip dressing c/d/i. <2 second capillary refill. HEENT: Normocephalic. Sclera is non-icteric. Pupils equal and round. Oral mucosa pink and moist. Neck: No JVD. Heart: S1 and S2 regular rate and rhythm. No murmurs, gallops, or rubs auscultated. Chest: Respirations even and unlabored. Lung sounds are clear to auscultation without wheezes, rhonchi, or rales. Abdomen: Soft, round and non-tender to palpation. Bowel sounds present in all 4 quadrants. No guarding. Extremities: Trace edema RLE. No erythema or calf tenderness. Grossly normal ROM. Radial and dorsalis pedis pulses +2 bilaterally. Sensation intact all extremities. Intact dorsi and plantar flexion. Objective Data Vital Signs Vital Signs: Vital Signs - 24 hr 04/24/23 12:13 04/24/23 12:30 04/24/23 12:45 Temperature 97.6 F 97.8 F Pulse Rate 81 82 77 Respiratory Rate 12 16 16 Blood Pressure 94/59 L 89/56 L 88/62 L Pulse Oximetry 95 99 100 Oxygen Delivery Room Air 04/24/23 13:15 04/24/23 15:32 04/24/23 14:15 Temperature 97.3 F L 97.5 F L Pulse Rate 78 77 Respiratory Rate 16 17 Blood Pressure 92/46 L 91/49 L Pulse Oximetry 98 100 Oxygen Delivery Room Air 04/24/23 18:13 04/24/23 21:13 04/24/23 23:20 Temperature 97.9 F 98.4 F 98.3 F Pulse Rate 85 91 94 Respiratory Rate 17 17 17 Blood Pressure 105/55 L 113/55 L 101/51 L Pulse Oximetry 100 98 98 Oxygen Delivery 04/25/23 05:31 04/25/23 07:43 04/25/23 10:28 Temperature 98.4 F 98.2 F Pulse Rate 97 86 Respiratory Rate 17 18 16 Blood Pressure 100/51 L 102/58 L Pulse Oximetry 95 95 96 Oxygen Delivery
--- NOTE | 2023-04-25 13:40 | P.PNAN_ITS ---
Anes - Prog Note Post-Op Date/Time: 04/25/23 13:40 Vital Signs: Last Vital Signs Temp 36.8 C 04/25/23 10:28 Pulse 86 04/25/23 10:28 Resp 16 04/25/23 10:28 BP 102/58 L 04/25/23 10:28 Pulse Ox 96 04/25/23 10:28 O2 Del Method Room Air 04/25/23 07:43 O2 Flow Rate 8 04/24/23 11:45 Pain Score (VAS): 3 I/O: Intake & Output 04/24/23 04/25/23 04/25/23 23:59 07:59 15:59 Intake Total 990 1400 1330 Output Total 50 30 800 Balance 940 1370 530 Laboratory Tests 04/25/23 05:16 04/25/23 05:16 04/24/23 04/25/23 15:06 05:16 WBC 6.5 RBC 3.09 L Hgb 11.3 L 9.2 L Hct 35.5 L 28.9 L MCV 93.5 MCH 29.8 MCHC 31.8 L RDW 12.6 Plt Count 164 MPV 9.4 Immature Gran % (Auto) 0.3 Neut % (Auto) 78.8 H Lymph % (Auto) 9.3 L [place] % (Auto) 11.4 H Eos % (Auto) 0.0 Baso % (Auto) 0.2 Lymph # (Auto) 0.60 L [place] # (Auto) 0.7 H Eos # (Auto) 0.0 Baso # (Auto) 0.0 Abs Immat Gran (auto) 0.02 Absolute Neuts (auto) 5.1 Absolute Nucleated RBC 0.0 Nucleated RBC % 0.0 Sodium 139 Potassium 3.8 Chloride 111 H Carbon Dioxide 25 Anion Gap 3 L BUN 7 Creatinine 0.70 Estim Creat Clear Calc 66 Estimated GFR > 60 Glucose 105 Calcium 7.5 L Vitamin D 25-Hydroxy 21.3 Patient Feedback: Patient satisfied with anesthetic care.
== END 2023-04-25 13:40 | disposition home or self-care (01) ==
LOC: ANHSURGERY 11:16 → ANH2MED 12:18
PROVIDERS: Physician Assistant Surgical; PCP Family Medicine; Visit Provider Orthopaedic Surgery
PROC: (CPT 27130; principal; 2023-04-24 07:30)
DX: M16.11 Unilateral primary osteoarthritis, right hip (principal); D62 Acute posthemorrhagic anemia; I95.81 Postprocedural hypotension; R11.0 Nausea; E55.9 Vitamin D deficiency, unspecified; F41.9 Anxiety disorder, unspecified; F32.A Depression, unspecified; Z87.891 Personal history of nicotine dependence
CPT/HCPCS: 27130; 36415; 73501; 80048; 80307; 82040; 82306; 83036; 85014; 85018; 85025; 86850; 86900; 86901; 87081; 93005; 97110; 97161; 97165; 97530; 97535; 99199; A9270; C1776; J0171; J0690; J1100; J1170; J1885; J2250; J2270; J2370; J2405; J2704; J2795; J3010; J3370; J7030; J7120

== ENCOUNTER 2025-02-07 09:47 | Outpatient (CLI) | payer OTHER, SELFPAY ==
--- OUTSIDE RECORDS SUMMARY | 2025-02-07 10:03 | XMS_ITS | Referral Summary ---
Author Organization [facility] Address [address] [place] [address] Care Team Providers Care Early Childhood Lead Teacher Name Role Phone Ramón Soria MD Primary Care Provider Allergies No known active allergies Medications DULoxetine DR (CYMBALTA) 30 mg capsuleIndicati ons:Anxiety with Depression Take 1 capsule (30 mg total) by mouth chapter relations administrator before breakfast Active lamoTRIgine (LaMICtal) 150 mg tabletIndicatio ns: mood stabilizer Take 1 tablet (150 mg total) by mouth chapter relations administrator before breakfast [address] (VOLTAREN) 75 mg EC tabletIndicatio ns:Osteoarthrit is Take 1 tablet (75 mg total) by mouth 2 (two) times a day 3 Active erythromycin (ILOTYCIN) ophthalmic ointment Apply to eyelid incisions 3 [address] a day[address] Only place ointment in the eyes if they are irritated. 3.5 g 3 3 Active Additional Information Patient not taking.Reported on 06/14/2023 Eliquis 2.5 mg tablet Take 1 tablet (2.5 mg total) by mouth 2 (two) times a day 3 Active Vitamin D2 1,250 mcg (50,000 unit) capsule Take 1 capsule (50,000 Units total) by mouth once a week 3 Active calcium citrate-vitamin D3 (CITRACAL WITH D) 315 mg-6.25 mcg (250 unit) per tablet Take 1 tablet by mouth daily Active Active Problems Problem Noted Date Diagnosed Date Xanthelasma of eyelid, bilateral 01/31/2023 Overview (01/31/2023): Added automatically from request for surgery [id number] Immunizations Immunization Administration Dates Next Due Influenza, Quadrivalent, Spl it, Preservative Free, Intramuscular 09/29/2021 Social History Tobacco Use Types Packs/Day Years Used Date Smoking Tobacco: Former Cigarettes Q uit: 1981 Passive Smoke Exposure: Never Smokeless Tobacco: Never AUDIT-C Answer Date Recorded Q1: How often do you have a drink containing alcohol? Never 03/03/2023 Q2: How many drinks containi ng alcohol do you have on a typical day when you are drinking? Patient does not drink Q3: How often do you have si x or more drinks on one occasion? Never 03/03/2023 Personal Safety Answer Date Recorded Have you ever been in or are you currently in a harmful physical or emotional relationship or is someone making you feel afraid or unsafe? 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 Gender Identity Female 07/15/2022 1:59 PM CDT Sexual Orientation Not on file Last Filed Vital Signs Vital Sign Reading Time Taken Comments Blood Pressure 120/78 06/16/2024 5:39 PM CDT Pulse 94 06/16/2024 5:39 PM CDT Temperature 36.7 C (98.1 F) 06/16/2024 5:39 PM CDT Respiratory Rate 18 06/16/2024 5:39 PM CDT Oxygen Saturation 97% 06/16/2024 5:39 PM CDT Inhaled Oxygen Concentration - - Weight 71.1 kg (156 lb 12.8 oz) 06/16/2024 5:39 PM CDT Height 167.6 cm (5' 6 ) 03/03/2023 12:1 0 PM CDT Body Mass Index 25.31 03/03/2023 12:10 PM CDT Plan of Treatment Not on file Insurance [facility] CHOICE PL[facility] H[facility]/PPO Address: [address] [place] [address] , [facility]/PPO Address: [place] [address] , [facility] CHOICE [facility] H[facility]/PPO [place] [address] Care Teams Early Childhood Lead Teacher Relationship Specialty Start Date End Date Ramón Soria MD [address] [place] [address] PCP - General Family Medicine 07/15/22
--- OUTSIDE RECORDS SUMMARY | 2025-02-07 10:03 | XMS_ITS | Clinical Summary ---
Author Organization [facility] Address [address] [place] [address] Care Team Providers Care Touring Production Manager Name Role Phone Ramón Soria MD Primary Care Provider Allergies No known active allergies Medications DULoxetine DR (CYMBALTA) 30 mg capsuleIndicati ons:Anxiety with Depression Take 1 capsule (30 mg total) by mouth power saw mechanic before breakfast Active lamoTRIgine (LaMICtal) 150 mg tabletIndicatio ns: mood stabilizer Take 1 tablet (150 mg total) by mouth power saw mechanic before breakfast [address] (VOLTAREN) [...] (01/31/2023): Added automatically from request for surgery [id number] Immunizations Immunization Administration Dates Next Due Influenza, Quadrivalent, Spl it, Preservative Free, Intramuscular 09/29/2021 Surgical History Surgery Date Site/Laterality Comments ELBOW SURGERY >25 years ago COLONOSCOPY EYE SURGERY 03/28/2023 Bilateral BILATERAL EXCISION LESION UPPER EYELIDS (Bilateral: Eye) RECONSTRUCTION TRANSPOSITION SKIN FLAPS (Bilateral: Eye) 03-28-2023 for Xanthelasma of eyelids. 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 Gender Identity Female 07/15/2022 1:59 PM CDT Sexual Orientation Not on file Obstetrics History Last Filed Vital Signs Vital Sign Reading [...] 03/03/2023 12:10 PM CDT Plan of Treatment Health Maintenance Due Date Last Done Comments Breast Cancer Screening-Mammogram 1963 Cervical Cancer Screening 1963 Colon Cancer Screening-Colonoscopy 1963 Depression Screening 1963 Hepatitis C Screening 1963 DTaP/Tdap/Td Vaccine (1 - Tdap) 1974 Hepatitis B Screening 1981 Regular Well Visit/Exam 18-64 1981 Zoster Vaccine (1 of 2) 2013 Covid-19 Vaccine (2 - 2023-2 5 season) 2024 09/29/2021 Influenza Vaccine (#1) 2024 09/29/2021 Pneumococcal vaccine <65 Aged Out No longer eligible based on patient's age to complete this topic Insurance [facility] H[facility]/PPO Address: [facility] [address] [place] [address] [facility] CHOICE PLUS [facility] H[facility]/PPO Address: [place] [phone] [facility] CHOICE PLUS [facility] H[facility]/PPO Address: [place] [phone] Care Teams Touring Production Manager Relationship Specialty Start Date End Date Ramón Soria MD [address] [facility] [address] [place] [address] PCP - General Family Medicine 07/15/22
--- OUTSIDE RECORDS SUMMARY | 2025-02-07 10:03 | XMS_ITS | Clinical Summary ---
Author Organization [facility] Address [address] [facility] [place] [address] Care Team Providers Care Home Care Giver Name Role Phone Ramón Soria MD Primary Care Provider [phone] [facility],non-owned Affiliates and Associated Physician Practices is amultiple site organization consisting of ambulatory clinics and hospital sitesin [place], [place], [place] and [place]. This disclosure is being madepursuant to the Care Everywhere program and may not contain all information available regarding this patient. Last updated 18.[facility] Allergies No known active allergies Medications * Be aware that medications may not be up to date on this document. Alwaysverify current medications with the patient. Medication Sig Dispensed Refills Start Date End Date Status DULoxetine (CYMBALTA) 30 MG capsule Take 30 mg by mouth once daily Active albuterol HFA (PROVENTIL;VENTOLIN;P ROAIR) 108 (90 Base) MCG/ACT inhalerIndications:Ac diamond bronchitis, unspecified organism Inhale 2 puffs by mouth every 6 hours as needed for Wheezing or Cough 1 Inhaler 01/17/2020 Active fluticasone propionate (FLONASE) 50 MCG/ACT nasal sprayIndications:Acut e otitis media, unspecified otitis media type [place] 2 sprays into each nostril once daily 1 g 01/17/2020 Active Active Problems No known active problems Family History Medical History Relation Name Comments Hypertension Father Other - Anesthesia Father Other - Cardiac Father heart diseas e Relation Name Status Comments Father Social History Tobacco Use Types Packs/Day Years Used Date Smoking Tobacco: Former Smokeless Tobacco: Never Sex and Gender Information Value Date Recorded Sex Assigned at Not on file Gender Identity Not on file Sexual Orientation Not on file Last Filed Vital Signs Vital Sign Reading Time Taken Comments Blood Pressure 126/76 01/17/2020 11:57 AM CDT Pulse 86 01/17/2020 11:57 AM CDT Temperature 37.4 C (99.4 F) 01/17/2020 11:57 AM CDT Respiratory Rate 16 01/17/2020 11:57 AM CDT Oxygen Saturation 97% 01/17/2020 11:57 AM CDT Inhaled Oxygen Concentration - - Weight 70.3 kg (155 lb) 01/17/2020 11:57 AM CDT Height 167.6 cm (5' 6 ) 01/17/2020 11:57 AM CDT Body Mass Index 25.02 01/17/2020 11:57 AM CDT Plan of Treatment Health Maintenance Due Date Last Done Comments COLOGUARD (AGES 45-75) - COL ON CA SCREENING 1963 COLON MONITORING 1963 COLONOSCOPY - COLON CA SCREENING 1963 CT COLONOGRAPHY - COLON CA SCREENING 1963 Colorectal Cancer Screening 1963 FIT - COLON CA SCREENING 1963 FLEX SIG - COLON CA SCREENING 1963 LIPID TESTING 1963 MAMMOGRAM 1963 PAP SMEAR 1963 HIV SCREENING 1978 HEPATITIS C SCREENING 04/12/1981 DTAP/TDAP/TD VACCINES (1 - Tdap) 1982 PNEUMOCOCCAL VACCINE 50+ (1 of 1 - PCV) 2013 ZOSTER VACCINE (1 of 2) 2013 SCREENING FOR DIABETES 01/17/2020 COVID-19 VACCINE (2 - 2023-2 5 season) 2024 09/29/2021 INFLUENZA VACCINE (#1) 2024 09/29/2021 DEPRESSION SCREENING 11/06/2024 Respiratory Syncytial Virus (RSV) Vaccine Pt: or over 60 yrs (1 - 1-dose 75+ series) 2038 HEPATITIS B VACCINE Aged Out No longe r eligible based on patient's age to complete this topic HIB VACCINE Aged Out No longer eligi ble based on patient's age to complete this topic HPV VACCINE Aged Out No longer eligi ble based on patient's age to complete this topic MENINGOCOCCAL (Group B) VACC INE SHARED DECISION-MAKING Aged Out No longer eligibl e based on patient's age to complete this topic MENINGOCOCCAL GROUPS A/C/Y/W VACCINE Aged Out No longer eligible b ased on patient's age to complete this topic PNEUMOCOCCAL VACCINE Aged Out No long er eligible based on patient's age to complete this topic Care Teams Home Care Giver Relationship Specialty Start Date End Date Ramón Soria MD [address] [place] [address] PCP - General Family Medicine 04/20/18
--- OUTSIDE RECORDS SUMMARY | 2025-02-07 10:03 | XMS_ITS | Clinical Summary ---
Author Organization [facility] Address [address] [place]: Epic Prelude ADT [place] [address] Care Team Providers Care Aesthetics Instructor Name Role Phone Unavailable Primary Care Provider Unavailabl e Allergies No known active allergies Medications methylPREDNISol one (MEDROL DOSPACK) 4 mg Tablets, Dose Pack Take by mouth as directed on package. 21 Each 03/25/2022 5:25 PM CDT 03/25/2022 Active DULoxetine (CYMBALTA) 30 mg Capsule, Delayed Release(E.C.) Take 1 Capsule (30 mg) by mouth daily. 30 Capsule 1 07/20/2022 9:54 AM CDT 04/21/2022 Active lamoTRIgine (LaMICtal) 25 mg tablet TAKE ONE TABLET BY MOUTH EVERY NIGHT AT BEDTIME FOR 2 WEEKS, THEN INCREASE TO TWO TABLETS BY MOUTH AT BEDTIME 42 Tablet 10/26/2022 4:06 PM HEALTHCARE INSURANCE SALES AGENT 10/26/2022 Active lamoTRIgine (LaMICtal) 100 mg tablet Take 1 Tablet (100 mg) by mouth daily at bedtime. 30 Tablet 11/26/2022 5:45 PM HEALTHCARE INSURANCE SALES AGENT 10/26/2022 Active benzonatate (TESSALON) 100 mg capsule Take 1 Capsule (100 mg) by mouth 3 times daily as needed for cough 30 Capsule 12/06/2022 5:23 PM HEALTHCARE INSURANCE SALES AGENT 12/06/2022 Active methylPREDNISol one (MEDROL DOSPACK) 4 mg Tablets, Dose Pack USE DIRECTED ON PACKAGE 21 Each 12/06/2022 5:23 PM HEALTHCARE INSURANCE SALES AGENT 12/06/2022 Active lamoTRIgine (LaMICtal) 150 mg tablet Take 1 Tablet (150 mg) by mouth daily at bedtime. 30 Tablet 12/21/2022 3:37 PM HEALTHCARE INSURANCE SALES AGENT 11/28/2022 Active diclofenac sodium (VOLTAREN) 75 mg Tablet, Delayed Release (E.C.) Take 1 Tablet (75 mg) by mouth 2 times daily with meals. 60 Tablet 1 03/21/2023 3:45 PM CDT 01/23/2023 Active acetaminophen (TYLENOL) 500 mg tablet Take 2 Tablets (1,000 mg) by mouth every 6 hours. 90 Tablet 04/25/2023 Active celecoxib (CeleBREX) 200 mg capsule Take 1 Capsule (200 mg) by mouth daily. 10 Capsule 04/25/2023 11:49 AM CDT 04/25/2023 Active cephALEXin (KEFLEX) 500 mg capsule Take 1 Capsule (500 mg) by mouth every 6 hours. 28 Capsule 04/25/2023 11:49 AM CDT 04/25/2023 Active apixaban (Eliquis) 2.5 mg tablet Take 1 Tablet (2.5 mg) by mouth every 12 hours. 70 Tablet 04/25/2023 11:49 AM CDT 04/25/2023 Active ergocalciferol (VITAMIN D2) 50,000 unit capsule Take 1 Capsule (50,000 Units) by mouth every 7 days. 8 Capsule 04/25/2023 11:49 AM CDT 04/25/2023 Active oxyCODONE (ROXICODONE) 5 mg tablet Take 0.5 Tablets (2.5 mg) by mouth every 4 hours. 30 Tablet 04/25/2023 11:49 AM CDT 04/25/2023 Active polyethylene glycol (MIRALAX) 17 gram Powder in Packet Take 1 Packet (17 Grams) by mouth daily in the morning. 30 Each 04/25/2023 11:49 AM CDT 04/25/2023 Active sennosides-docu sate sodium (SENNA-S) 8.6-50 mg tablet Take 2 Tablets by mouth every 12 hours. 60 Tablet 04/25/2023 11:49 AM CDT 04/25/2023 Active DULoxetine (CYMBALTA) 30 mg Capsule, Delayed Release(E.C.) Take 1 Capsule (30 mg) by mouth every other day. 45 Capsule 04/23/2024 11:47 AM CDT 04/12/2024 Active lamoTRIgine (LaMICtal) 150 mg tablet Take 1 Tablet (150 mg) by mouth daily at bedtime. 90 Tablet 08/15/2024 6:30 PM CDT 04/12/2024 Active lamoTRIgine (LaMICtal) 150 mg tablet Take 1 Tablet (150 mg) by mouth daily at bedtime. 30 Tablet 05/14/2024 11:41 AM CDT 05/14/2024 Active sertraline (ZOLOFT) 25 mg tablet Take 1 Tablet (25 mg) by mouth daily. 30 Tablet 05/14/2024 11:41 AM CDT 05/14/2024 Active DULoxetine (CYMBALTA) 30 mg Capsule, Delayed Release(E.C.) Take 1 Capsule (30 mg) by mouth daily. 30 Capsule 05/16/2024 Active lamoTRIgine (LaMICtal) 150 mg tablet Take 1 Tablet (150 mg) by mouth daily. 30 Tablet 05/16/2024 Active DULoxetine (CYMBALTA) 30 mg Capsule, Delayed Release(E.C.) Take 1 Capsule (30 mg) by mouth every evening 90 Capsule 12/29/2024 11:57 AM [facility] 09/12/2024 Active lamoTRIgine (LaMICtal) 150 mg tablet Take 1 Tablet (150 mg) by mouth daily at bedtime. 90 Tablet 11/18/2024 3:16 PM HEALTHCARE INSURANCE SALES AGENT 09/12/2024 Active sertraline (ZOLOFT) 25 mg tablet Take 1 Tablet (25 mg) by mouth daily. 90 Tablet 10/31/2024 3:58 PM [facility] 09/12/2024 Active DULoxetine (CYMBALTA) 30 mg Capsule, Delayed Release(E.C.) Take 1 Capsule (30 mg) by mouth daily. 30 Capsule 11/18/2024 Active lamoTRIgine (LaMICtal) 150 mg tablet Take 1 Tablet (150 mg) by mouth daily. 30 Tablet 12/29/2024 11:57 AM HEALTHCARE INSURANCE SALES AGENT 11/18/2024 Active sertraline (ZOLOFT) 25 mg tablet Take 1 Tablet (25 mg) by mouth daily. 90 Tablet 12/29/2024 11:57 AM HEALTHCARE INSURANCE SALES AGENT 11/18/2024 Active hydrOXYzine HCL (ATARAX) 10 mg tablet Take 1 Tablet (10 mg) by mouth 1 time daily as needed. 30 Tablet 11/18/2024 3:16 PM HEALTHCARE INSURANCE SALES AGENT 11/18/2024 Active lamoTRIgine (LaMICtal) 150 mg tablet Take 1 Tablet (150 mg) by mouth daily at bedtime. 90 Tablet 12/30/2024 Active Encounters Date Type Department Care Team Description 02/04/2025 External Device Data [facility]CTION Provider, Abstract 01/22/2025 External Device Data [facility] Provider, Abstract 01/15/2025 External Device Data [facility] Provider, Abstract 01/14/2025 External Device Data [facility] Provider, Abstract 01/13/2025 External Device Data [facility] Provider, Abstract 01/11/2025 External Device Data [facility] Provider, Abstract 01/11/2025 External Device Data [facility] Provider, Abstract 01/08/2025 External Device Data [facility] Provider, Abstract 12/25/2024 External Device Data [facility] Provider, Abstract 11/28/2024 External Device Data [facility] Provider, Abstract 11/19/2024 External Device Data [facility]STRACTION Provider, Abstract from Last 3 Months Social History Tobacco Use Types Packs/Day Years Used Date Smoking Tobacco: Never Assessed Comments Unknown Sex and Gender Information Value Date Recorded Sex Assigned at Not on file Legal Sex Female 4:44 AM HEALTHCARE INSURANCE SALES AGENT Gender Identity Not on file Sexual Orientation Not on file Plan of Treatment Health Maintenance Due Date Last Done Comments DTAP/TDAP/TD VACCINES (1 - Tdap) 1982 HPV/Cotest (21-29) 1984 PAP SMEAR 1984 CERVICAL CANCER SCREENING 1993 HPV/Cotest (30-65) 1993 PAP SMEAR 1993 BREAST CANCER SCREENING 2003 COLORECTAL SCREENING 2008 Colorectal Cancer Screening 2008 FIT-DNA Q 3 years 2008 FIT/FOBT Q 1 year 2008 Flex Sig/CT Colonography Q 5 years 2008 ZOSTER VACCINE (1 of 2) 2013 INFLUENZA VACCINE (#1) 2024 RSV VACCINE (60+ or ) (1 - 1-dose 75+ series) 2038 PNEUMOCOCCAL VACCINE 0-49 YEARS Aged Out No longer eligible based on patient's age to complete this topic Insurance [employer]) [facility] [employer]
--- OUTSIDE RECORDS SUMMARY | 2025-02-07 10:03 | XMS_ITS | Patient Health Record ---
Author Organization [facility] citizenmade Address [address] [facility] [address] [place] [address] Care Team Providers Care Topstitcher Lockstitch Name Role Phone Ramón Soria MD Primary Care Provider UnavailMerlin Cruz Unavailable [phone] Laly Perez Unavailable [phone] Migration, Provider Unavailable Unavailable Allergies No Known Allergies Reason For Referral No Information Medications Medication SIG (Take, Route, Frequency, Duration) Notes Start Date End Date Status lamoTRIgine 150 MG Take 1 Tablet (150 mg) by mouth daily at bedtime. Active hydrOXYzine HCl 10 MG 1 tablet Oral Once a day for 90 days As needed rx on 01/08/2025 Active lamoTRIgine 25 MG 3 tablet everynigh Orally Once a day for 90 days rx on 01/08/2025 Active DULoxetine HCl 30 MG 1 capsule every evening Oral Once a day for 90 days rx on 01/08/2025 Active DULoxetine HCl 30 MG 1 capsule Orally On ce a day for 30 day(s) 05/16/2024 Active Sertraline HCl 25 MG 1 tablet Orally Onc e a day for 90 days rx on 01/08/2025 Active Social History Tobacco Use: Social History Observation Description Date Details (start date - stop date) Never Smoker NA - NA Sex Assigned At : Social History Observation Description Sex Assigned At Female Tobacco Control (Standard) Question Answer Notes Tobacco use: Nonsmoker How long has it been since you last smoked? [address] ter than 10 years AUDIT-C (Standard) Question Answer Notes Did you have a drink contain ing alcohol in the past year? No How often did you have six o r more drinks on one occasion in the past year? Never (0 point) How many drinks did you have on a typical day when you were drinking in the past year? 1 or 2 drinks (0 point) How often did you have a dri nk containing alcohol in the past year? Monthly or less (1 point) Problems Problem Type SNOMED Code ICD Code Onset Dates Problem Status W/U Status Risk Notes Problem Mild depression (152530363) Major depressive disorder, recurrent, mild (F33.0) Active confirmed Problem Generalized anxiety disorder (76032786) RADHA (generalized anxiety disorder) (F41.1) Active confirmed Problem Posttraumatic stress disorder (89134671) PTSD (post-traumati c stress disorder) (F43.10) Active confirmed Vital Signs Heart Rate 92 /min 01/08/2025 Height-cm 167.59 cm 01/08/2025 Blood pressure diastolic 78 mm Hg 01/08/2025 Weight-kg 72.58 kg 01/08/2025 Height 65.98 in 01/08/2025 Blood pressure systolic 119 mm Hg 01/08/2025 Weight 160 lbs 01/08/2025 BMI 25.84 kg/m2 01/08/2025 Encounters Encounter Location Date Provider Diagnosis [facility] [address] [address] 04/12/2024 Merlin Giovany Major depressive disorder, recurrent, mild F33.0 ; RADHA (generalized anxiety disorder) F41.1 and PTSD (post-traumatic stress disorder) F43.10 [facility] [employer] [address] [address] 09/12/2024 Merlin Giovany Major depressive disorder, recurrent, mild F33.0 ; RADHA (generalized anxiety disorder) F41.1 and PTSD (post-traumatic stress disorder) F43.10 [facility] [address] [address] 09/23/2024 Laly Hemann Major depressive disorder, recurrent, mild F33.0 ; PTSD (post-traumatic stress disorder) F43.10 and RADHA (generalized anxiety disorder) F41.1 [facility] [address] [address] 12/18/2024 Merlin Giovany [facility] [employer] [address] [address] 01/08/2025 Merlin Giovany Major depressive disorder, recurrent, mild F33.0 ; RADHA (generalized anxiety disorder) F41.1 and PTSD (post-traumatic stress disorder) F43.10 [facility], [place] [address] [facility] [address] [place] [address] 02/23/2024 Provider [facility], [place] [address] [facility] [address] [place] [address] 03/23/2024 Provider Migration [facility], [place] [address] [facility] [address] [place] [address] 03/24/2024 Provider Migration [facility], [place] [address] [facility] [address] [place] [address] 05/06/2024 [facility] [place] [address] [facility] [address] [place] [address] 05/13/2024 Merlin [facility], [place] [address] [facility] [address] [place] [address] 05/13/2024 Merlinrubin Cameronam Major depressive disorder, recurrent, mild F33.0 and PTSD (post-traumatic stress disorder) F43.10 [facility], [place] [address] [facility] [address] [place] [address] 08/19/2024 [facility], [place] [address] [facility] [address] [place] [address] 11/07/2024 Merlin [facility], [place] [address] [facility] [address] [place] [address] 11/07/2024 Merlinrubin Adair [facility], [place] [address] [facility] [address] [place] [address] 11/15/2024 Merlin Giovany Major depressive disorder, recurrent, mild F33.0 and PTSD (post-traumatic stress disorder) F43.10 [facility], [place] [address] [facility] [address] [place] [address] 11/17/2024 Merlin Cameronam Assessments Encounter Date Diagnosis (ICD Code) Assessment Notes Treatment Notes Treatment Clinical Notes Section Notes 04/12/2024 Major depressive disorder, recurrent, mild (ICD-10 - F33.0) 04/12/2024 RADHA (generalized anxiety disorder) (ICD-10 - F41.1) 09/12/2024 Major depressive disorder, recurrent, mild (ICD-10 - F33.0) Mild to Moderate Depression - Assessment: Patient reports feeling steady overall but experiences episodes of crying and sadness lasting 24 to 48 hours, approximately once a month. In between episodes, the patient experiences mild depression. Currently on duloxetine 30 mg every other day and sertraline 25 mg daily. Patient reports feeling irritable and sad when missing duloxetine doses. - Plan: - Increase duloxetine to 30 mg daily to help improve mood. - Continue sertraline 25 mg daily. - Reassess the patient's response to the medication adjustment in three months or sooner if needed. Relationship Dissatisfaction and Stress - Assessment: Patient reports feeling trapped in her marriage and not being in love with her . Financial stressors and responsibilities contribute to the patient's overall mood. Patient feels annoyed by her and experiences guilt over her reactions. - Plan: - Encourage the patient to consider individual or couples therapy to address relationship issues and improve communication. - Provide resources for local therapists if needed. Fatigue and Lack of Motivation - Assessment: Patient reports feeling tired all the time and not motivated to do anything. Expresses desire to go to bed immediately after work. - Plan: - Monitor the patient's energy levels and motivation after adjusting the duloxetine dosage. - Consider further evaluation for potential underlying causes of fatigue if no improvement is observed. Possible ADHD - Assessment: Patient's daughter suggested that she might have ADHD due to disorganization at home. Patient expresses difficulty with organization and household management. - Plan: - Encourage the patient to discuss this concern with Laly during their upcoming appointment on the . - If ADHD is suspected, consider further evaluation and appropriate treatment options. Gene Site Testing - Assessment: Patient mentioned having genetic testing done by Dr. Zurita, which may provide information about medication absorption. Testing suggests patient may be a slow metabolizer of medications. Possible folate deficiency mentioned. - Plan: - Request a copy of the gene site testing results to review. - Consider any necessary adjustments to the patient's medication regimen based on the findings. Follow-up - Plan: - Schedule a follow-up appointment in three months to reassess the patient's mood, medication effectiveness, and any other concerns. - Encourage the patient to schedule an earlier appointment if needed. 09/23/2024 Major depressive disorder, recurrent, mild (ICD-10 - F33.0) 09/23/2024 PTSD (post-traumat ic stress disorder) (ICD-10 - F43.10) 11/15/2024 Major depressive disorder, recurrent, mild (ICD-10 - F33.0) 01/08/2025 Major depressive disorder, recurrent, mild (ICD-10 - F33.0) 01/08/2025 RADHA (generalized anxiety disorder) (ICD-10 - F41.1) 11/15/2024 PTSD (post-traumat ic stress disorder) (ICD-10 - F43.10) 09/23/2024 RADHA (generalized anxiety disorder) (ICD-10 - F41.1) 09/12/2024 RADHA (generalized anxiety disorder) (ICD-10 - F41.1) Mild to Moderate Depression - Assessment: Patient reports feeling steady overall but experiences episodes of crying and sadness lasting 24 to 48 hours, approximately once a month. In between episodes, the patient experiences mild depression. Currently on duloxetine 30 mg every other day and sertraline 25 mg daily. Patient reports feeling irritable and sad when missing duloxetine doses. - Plan: - Increase duloxetine to 30 mg daily to help improve mood. - Continue sertraline 25 mg daily. - Reassess the patient's response to the medication adjustment in three months or sooner if needed. Relationship Dissatisfaction and Stress - Assessment: Patient reports feeling trapped in her marriage and not being in love with her . Financial stressors and responsibilities contribute to the patient's overall mood. Patient feels annoyed by her and experiences guilt over her reactions. - Plan: - Encourage the patient to consider individual or couples therapy to address relationship issues and improve communication. - Provide resources for local therapists if needed. Fatigue and Lack of Motivation - Assessment: Patient reports feeling tired all the time and not motivated to do anything. Expresses desire to go to bed immediately after work. - Plan: - Monitor the patient's energy levels and motivation after adjusting the duloxetine dosage. - Consider further evaluation for potential underlying causes of fatigue if no improvement is observed. Possible ADHD - Assessment: Patient's daughter suggested that she might have ADHD due to disorganization at home. Patient expresses difficulty with organization and household management. - Plan: - Encourage the patient to discuss this concern with Laly during their upcoming appointment on the . - If ADHD is suspected, consider further evaluation and appropriate treatment options. Gene Site Testing - Assessment: Patient mentioned having genetic testing done by Dr. Zurita, which may provide information about medication absorption. Testing suggests patient may be a slow metabolizer of medications. Possible folate deficiency mentioned. - Plan: - Request a copy of the gene site testing results to review. - Consider any necessary adjustments to the patient's medication regimen based on the findings. Follow-up - Plan: - Schedule a follow-up appointment in three months to reassess the patient's mood, medication effectiveness, and any other concerns. - Encourage the patient to schedule an earlier appointment if needed. 04/12/2024 PTSD (post-traumat ic stress disorder) (ICD-10 - F43.10) 05/13/2024 Major depressive disorder, recurrent, mild (ICD-10 - F33.0) Electronic Prior Authorization was requested for Sertraline HCl 25 MG Tablet. Provider can order medication once approval received. Electronic Prior Authorization was requested for DULoxetine HCl 30 MG Capsule Delayed Release Particles. Provider can order medication once approval received. 05/13/2024 PTSD (post-traumat ic stress disorder) (ICD-10 - F43.10) Electronic Prior Authorization was requested for lamoTRIgine 150 MG Tablet. Provider can order medication once approval received. 09/12/2024 PTSD (post-traumat ic stress disorder) (ICD-10 - F43.10) Mild to Moderate Depression - Assessment: Patient reports feeling steady overall but experiences episodes of crying and sadness lasting 24 to 48 hours, approximately once a month. In between episodes, the patient experiences mild depression. Currently on duloxetine 30 mg every other day and sertraline 25 mg daily. Patient reports feeling irritable and sad when missing duloxetine doses. - Plan: - Increase duloxetine to 30 mg daily to help improve mood. - Continue sertraline 25 mg daily. - Reassess the patient's response to the medication adjustment in three months or sooner if needed. Relationship Dissatisfaction and Stress - Assessment: Patient reports feeling trapped in her marriage and not being in love with her . Financial stressors and responsibilities contribute to the patient's overall mood. Patient feels annoyed by her and experiences guilt over her reactions. - Plan: - Encourage the patient to consider individual or couples therapy to address relationship issues and improve communication. - Provide resources for local therapists if needed. Fatigue and Lack of Motivation - Assessment: Patient reports feeling tired all the time and not motivated to do anything. Expresses desire to go to bed immediately after work. - Plan: - Monitor the patient's energy levels and motivation after adjusting the duloxetine dosage. - Consider further evaluation for potential underlying causes of fatigue if no improvement is observed. Possible ADHD - Assessment: Patient's daughter suggested that she might have ADHD due to disorganization at home. Patient expresses difficulty with organization and household management. - Plan: - Encourage the patient to discuss this concern with Laly during their upcoming appointment on the . - If ADHD is suspected, consider further evaluation and appropriate treatment options. Gene Site Testing - Assessment: Patient mentioned having genetic testing done by Dr. Zurita, which may provide information about medication absorption. Testing suggests patient may be a slow metabolizer of medications. Possible folate deficiency mentioned. - Plan: - Request a copy of the gene site testing results to review. - Consider any necessary adjustments to the patient's medication regimen based on the findings. Follow-up - Plan: - Schedule a follow-up appointment in three months to reassess the patient's mood, medication effectiveness, and any other concerns. - Encourage the patient to schedule an earlier appointment if needed. 01/08/2025 PTSD (post-traumat ic stress disorder) (ICD-10 - F43.10) 04/12/2024 Other Learning About Depression Screening material was printed 01/08/2025 Other Difficulty in canceling appointment and late fee concern - Assessment: Patient attempted to cancel the appointment multiple times but faced issues with the emanuel and phone system. Patient agreed to pay the late fee. - Plan: - Acknowledge patient's concern and inform front desk officer staff to ensure better communication in the future. Lamotrigine dosage and side effects - Assessment: Patient reported running out of lamotrigine and experiencing a massive headache after missing it for a day or two. Currently taking 75 mg, which causes itching. - Plan: - Continue lamotrigine 75 mg daily. - Monitor for side effects and mood stabilization. - Reassess dosage and consider adjustments if necessary during next visit. Depression and anxiety - Assessment: Patient's depression score is seven. Currently on duloxetine 30 mg, sertraline 25 mg, and lamotrigine 75 mg. - Plan: - Continue duloxetine 30 mg daily for depression and anxiety. - Monitor patient's mood and adjust dosage if necessary during next visit. Insomnia - Assessment: Patient ran out of hydroxyzine, which was used for sleep, about a month ago. - Plan: - Prescribe hydroxyzine, one tablet once a day as needed for sleep. - Monitor patient's sleep quality and adjust dosage if necessary during next visit. Family stressors - Assessment: Patient experiencing stress related to work, family, and 's mental health. Patient's father had a mental breakdown after stopping Paxil abruptly. - Plan: - Encourage patient to seek support from friends, family, or support groups. - Consider referral to a therapist or counselor for additional support if needed. Medication refill and delivery - Plan: - Send prescriptions for lamotrigine 75 mg, duloxetine 30 mg, sertraline 25 mg, and hydroxyzine to [facility] for a 90-day supply with home delivery. Follow-up - Plan: - Schedule a follow-up appointment in 3 months to monitor patient's mood, medication side effects, and overall mental health. Plan Of Treatment Pending Test Test Name Order Date UDT 04/12/2024 Next Appt Details Provider Name:Merlin Adair , 04/02/2025 03:45:00 PM, [address] [facility] [address], [facility] [address], [place], [address], Insurance Providers Payer Name Payer Address Payer Phone Subscriber Number Group Number Insured Name Patient Relationship to Insured Coverage Start Date Coverage End Date [facility] [address] [place] [phone] [id number] TONIA STRONG Self - patient is the insured Medical (General) History Medical History History ICD Code Problems: Adjustment disorder with depre ssed mood Counseling Generalized anxiety disorder Posttraumatic stress disorder Severe depressed bipolar I disorder with out psychotic features Past Psychiatric History: Anxiety Disord er,PTSD undefined abdominal aortic aneurysm: No atrial fibrillation: No chronic fatigue syndrome: No essential tremor: No hyperlipidemia: No hypertension: No Parkinson's disease: Yes restless leg syndrome: No stroke: Yes subdural hematoma: No type 1 diabetes mellitus: No type 2 diabetes mellitus: No vitamin B12 deficiency: No vitamin D deficiency: No Parkinson's disease: No undefined stroke: No vitamin D deficiency: Yes Surgical History Surgery Date(Month/Year) Right Hip Replacement 2022 Hip replacement in 2022 2022 Hospitalization History Reason Date(Month/Year) Hip replacement in 2022 2022
--- OUTSIDE RECORDS SUMMARY | 2025-02-07 10:04 | XMS_ITS | Encounter Summary ---
Author Organization [email or web address] Address [address] [place] [address] Care Team Providers Care Communications Field Technician Name Role Phone Unavailable Primary Care Provider Unavailabl e Encounter Details Date Type Department Care Team (Late st Contact Info) Description 09/04/1998 Outpatient Historical HIS Hugo Howard MD [address] 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
--- OUTSIDE RECORDS SUMMARY | 2025-02-07 10:04 | XMS_ITS | Encounter Summary ---
Author Organization [facility] Address [address] [facility] Attn: [place] [address] Care Team Providers Care Director Of Sales And Marketing Name Role Phone Unavailable Primary Care Provider Unavailabl e Encounter Details Date Type Department Care Team (Late st Contact Info) Description 08/24/1998 Outpatient Historical Hugo Mathis MD [address] [facility] [address] [place] [address] Social History Tobacco Use Types Packs/Day Years Used Date Smoking Tobacco: Never Assessed Comments Unknown Sex and Gender Information Value Date Recorded Sex Assigned at Not on file 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
--- OUTSIDE RECORDS SUMMARY | 2025-02-07 10:04 | XMS_ITS | Data Portability ---
Author Organization [place] [facility], Main Office Address [address] [place] [address] Care Team Providers Care Carbonation Equipment Operator Name Role Phone EILEEN SORIA Primary Care Provider EILEEN SORIA Referring Provider Assessment Encounter Date Assessment Date Assessment LastModified by Organization Details LastModified Time 01/23/2023 01/23/2023 Impression: 1. 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 2. Anterior right knee pain associated with anterior groin and anterior thigh pain which seems to be originating from her right hip joint has her right the examination was benign today with no discomfort produced with provocative maneuvers of the right knee. Patient would like to proceed with total hip arthroplasty in approximately 2 months. She has been fairly miserable. I offered a prescription of diclofenac 75 mg twice daily we will see if this is more effective than the ibuprofen. Usually it is. Risk of side effects were discussed. She has no history of liver problems kidney problems or peptic ulcer history. Side effect instruction sheet was provided. I have suggested that she use a cane in the left hand whenever she is walking and this may be helpful and I demonstrated this to her today and fitted her with a cane and adjusted the height accordingly and make sure she knew how to use it properly. I think she would be a good candidate for a direct anterior approach total hip replacement the right hip. She wants to proceed with that. I have given her the Ortho info handout on total hip arthroplasty direct anterior approach booklet for her review. I have discussed with her that she will have numbness around the incision. Risk of infection discussed. She states her teeth are fine. The need for antibiotics before dental work in the future was reviewed. I have discussed the risk of blood clot problems complicating her hip replacement surgery. She has no personal or family history of DVT. I discussed my preference for using Eliquis for 5 weeks for DVT prophylaxis after hip replacement surgery. Risk of heterotopic ossification was discussed and I have recommended we use Celebrex 200 mg daily for 10 days after surgery for prophylaxis against this problem. I discussed risk of leg length discrepancy explained that she may consider a felt heel lift in the opposite side if she feels that her right leg is length and and we will do our best to avoid that of course. Risk of dislocation fracture component loosening and component where necessitating revision surgery as she is young, was discussed. Risk of need of transfusion and nerve injury reviewed. Risk of medical complications as heart attack stroke pulmonary embolism and were reviewed. I would like her to see Dr. Soria for medical evaluation before surgery inch will avoid any anti-inflammatory medications starting 7 days before surgery. 40 minutes were spent total care this patient more than half the time spent in yiqd-qq-vqtc care [email or web address] Not available 01/24/2023 19:47:39 05/05/2023 05/05/2023 HPI: Patient returns. She is 11 days out right anterior total hip arthroplasty. Overall doing well. She has stopped taking narcotics because she does not feel she needs it. She will use Tylenol. She remains on her Eliquis. She has finished up her Celebrex and has couple more days of her Keflex. Physical exam: Patient is walking with a cane today relatively well. Incision is well healed. Minimal swelling around the incision. No swelling in either lower extremity. Impression: Patient is doing well 11 days out right anterior total hip arthroplasty. She will continue on her Eliquis for her 5 week course. She may slowly increase activities. She can wean off the cane as comfort allows. Has been taking the high-dose vitamin-D is also taking [id number]-iakvpyt Citracal with vitamin-D at this point. Her bones will soft time surgery so we are going to set up a bone density for her in the near future as well. Not available 05/05/2023 13:08:53 05/22/2023 05/22/2023 HPI: Patient returns. She is 1 month out from right anterior total hip arthroplasty. Overall doing well. Having no real symptoms in hip. She has 1 more week Eliquis . Physical exam: Patient's incision is well healed. She is walking very well today without limp or assistance. No swelling in either lower extremity. Impression: Patient is doing well 1 month out from right anterior total hip arthroplasty. She will finish up her Eliquis. She may increase activities as tolerated at this point. We will see her back in a month make sure she continues be doing well. Not available 05/22/2023 15:08:05 Plan of Treatment Reminders Order Date Submit Date Provider Last Modified By Organization Details Last Modified Time Details Appointments None recorded. Lab None recorded. Referral None recorded. Procedures None recorded. Surgeries None recorded. Imaging XR, hip + pelvis, unilateral 2022 023 [email or web address] [facility] [place], [address], [place], [address], 3 16:25:15 XR, knee 2022 023 [email or web address] [facility] [place], [address], [place], [address], 3 10:06:01 XR, hip + pelvis, unilateral 2022 023 [email or web address] [facility] [place], [address], [place], [address], 3 10:06:01 Medication Orders diclofenac sodium 75 mg tablet,porter yed release 2022 023 [email or web address] [facility], [address] [facility] , [place], [place], [id number], 3 11:54:13 Patient TargetsNo targets recorded. Patient InstructionsNo instructions recorded. Reason for Referral None Reported. Results Created Date Observation Date Name Description Value Unit Range Abnormal Flag Note LastModifiedBy Organization Detail LastModifiedTime 02/27/20 21 02/26/2021 XR, hip, unila teral , 2 or 3 view No observ ation record ed. [id number] [facility] [place] [address], [place], [address], 01/04/2023 02:52:14 01/24/20 23 XR, hip + pelvi s, unila teral No observ ation record ed. [email or web address] [facility] [place] [address], [place], [address], 01/24/2023 19:35:35 01/24/20 23 XR, knee No observ ation record ed. [email or web address] [facility] [place] [address], [place], [address], 01/24/2023 19:36:00 04/18/20 23 03/31/2023 elect rocar diogr am No observ ation record ed. [email or web address] Not Available 2022 11:58:04 04/24/20 23 04/24/2023 XR, hip + pelvi s, unila teral No observ ation record ed. [address], [place], [address], 04/24/2023 16:25:35 04/24/20 23 04/24/2023 XR, hip + pelvi s, unila teral No observ ation record ed. [place] [id number] [facility] [address], [place], [address], 04/24/2023 16:25:51 05/22/20 23 XR, hip + pelvi s, unila teral No observ ation record ed. [email or web address] [facility] [place] [address], [place], [address], 05/22/2023 15:07:17 Result Notes None recorded. Problems Name Problem SNOMED Code Status Onset Date Resolution Date Notes Provider Name and Address Organization Details Recorded Time Pain in right hip joint 467838564525353 Active 2022 ETTA Maier, [place] - [employer] 3 16:34:05 Pain of right knee joint 722175409799908 Active 2022 ETTA Maier, enavu 17:00:23 Problem Notes None recorded. Procedures Surgical History Date Name Laterality Status Provider Name and Address Organization Details Recorded Time procedure on elbow completed Not Available [facility] [place] 01/04/2023 02:42:04 Imaging Results Imaging Date Name Status LastModified by Organization Details LastModified Time 02/26/2021 XR, hip, unilateral, 2 or 3 view completed [id number] [facility] [place] [address] [facility] [address], [place], [address], 01/04/2023 02:52:14 01/23/2023 XR, hip + pelvis, unilateral completed [email or web address] [facility] [place] [address] [facility] [address], [place], [address], 01/24/2023 19:35:35 01/23/2023 XR, knee completed [email or web address] [facility] [place] [address] [facility] [address], [place], [address], 01/24/2023 19:36:00 03/31/2023 electrocardiogram completed [email or web address] Informa tion not available 04/18/2023 11:58:04 04/24/2023 XR, hip + pelvis, unilateral completed [address], [place], [address], 04/24/2023 16:25:35 04/24/2023 XR, hip + pelvis, unilateral completed [email or web address] [address], [place], [address], 04/24/2023 16:25:51 05/22/2023 XR, hip + pelvis, unilateral completed [email or web address] [facility] [place] [address] [facility] [address], [place], [address], 05/22/2023 15:07:17 Procedure Notes None recorded. Medical Equipment None Reported. Allergies No known drug allergies Medications Name Sig Start Date Stop Date Status Note LastModified by Organization Details LastModified Time atorvastati n 40 mg tablet 01/23 completed Not Available Not Available Not Available lamotrigine 150 mg tablet active Not Available Not Available Not Available polyethylen e glycol 3350 17 gram oral powder packet 05/05 completed Not Available Not Available Not Available lamotrigine 25 mg tablet 01/23 completed Not Available Not Available Not Available amoxicillin 875 mg tablet 07/08 completed Not Available Not Available Not Available benzonatate 100 mg capsule 01/23 completed Not Available Not Available Not Available cephalexin 500 mg capsule active Not Available Not Available Not Available erythromyci n 5 mg/gram (0.5 %) eye ointment 05/05 completed Not Available Not Available Not Available diclofenac sodium 75 mg tablet,porter yed release Take 1 tablet twice a day by oral route with meals. 05/05 completed Not Available Not Available Not Available diclofenac sodium 50 mg tablet,porter yed release TAKE ONE TABLET BY MOUTH TWICE A DAY 05/05 completed Not Available Not Available Not Available methylpredn isolone 4 mg tablets in a dose pack 01/23 completed Not Available Not Available Not Available albuterol sulfate HFA 90 mcg/actuati on aerosol inhaler 07/08 completed Not Available Not Available Not Available Vitamin D2 1,250 mcg (50,000 unit) capsule active Not Available Not Available Not Available hydroxyzine HCl 10 mg tablet active Not Available Not Available Not Available fluticasone propionate 50 mcg/actuati on nasal spray,suspe nsion 07/08 completed Not Available Not Available Not Available lamotrigine 100 mg tablet 01/23 completed Not Available Not Available Not Available amoxicillin 875 mg-potassiu m clavulanate 125 mg tablet 07/08 completed Not Available Not Available Not Available oxycodone 5 mg tablet 05/05 completed Not Available Not Available Not Available Stool Softener-La xative 8.6 mg-50 mg tablet active Not Available Not Available Not Available duloxetine 30 mg capsule,del ayed release active Not Available Not Available Not Available Eliquis 2.5 mg tablet TAKE 1 TABLET (2.5 MG) BY MOUTH EVERY 12 HOURS. active Not Available Not Available No t Available BinaxNOW COVID-19 Ag Self Test kit Use as Directed on the Package 01/23 completed Not Available Not Available Not Available Vitals Date Recorded Body height Body mass index (BMI) Body weight Provider Name and Address Organization Details Last Updated DateTime 01/23/2023 165.1 cm 26.1 kg/m2 33772 g Tamar Castellon [facility] 01/23/2023 16:38:21 Date Recorded Body height Provider Name an d Address Organization Details Last Updated DateTime 05/05/2023 165.1 cm Tamar Castellon [facility] 05/05/2023 11:54:02 Date Recorded Body height Provider Name an d Address Organization Details Last Updated DateTime 05/22/2023 165.1 cm Tamar Castellon [facility] [employer] [facility] 05/22/2023 14:31:19 Date Recorded Body mass index (BMI) Body height Body weight Provider Name and Address Organization Details Last Updated DateTime 02/26/2021 24.5 kg/m2 165.1 cm 96987.08 g Not Available [facility] 01/04/2023 02:43:13 Date Recorded Body height Provider Name an d Address Organization Details Last Updated DateTime 05/03/2021 165.1 cm Not Available [facility] [place] 02:43:12 Social History Question Answer Notes LastModified by Organizat ion Details LastModified Time Tobacco Smoking Status Unknown If Ever Smoked Not Available [facility] [place] 01/04/2023 02:34:13 What Is Your Level Of Alcohol Consumption? None [id number] Information not available 01/04/2023 What Was The Date Of Your Most Recent Tobacco Screening? 02/26/2021 [id number] Information not available 01/04/2023 Sex: Unknown Functional Status None recorded. Mental Status None recorded. Family History Relationship Description Onset Age of this Age Resolved Age Notes LastModified by Organization Details LastModified Time Father Heart disease [id number] Not available 01/04/2023 02:42:07 Father Family history of malignant neoplasm [id number] Not available 01/04/2023 02:42:07 Father Hypertensive disorder [id number] Not available 01/04/2023 02:42:07 Brother Heart disease [id number] Not available 01/04/2023 02:42:07 Unspecified Relation Diabetes mellitus aunt [id number] Not available 01/04/2023 02:42:07 Medical History Condition Response OSTEOPOROSIS Y ARTHRITIS Y Gynecological HistoryNo gynecological history recorded. Obstetrics History GPAL:G 0 P 0 0 0 0 Past Encounters Encounter ID Performer Location Encounter Start Date Encounter Closed Date Diagnosis/Indication Diagnosis SNOMED-CT Code Diagnosis ICD10 Code Diagnosis Note [id number] [facility] [place] [address] [place] [address] 02/26/2021 00:00:00 2021 22:11:51 [id number] [facility] [place] [address] [place] [address] 05/03/2021 00:00:00 05/03/2021 17:48:21 [id number] Margarito Champion MD [facility] [place] [address] [place] [address] 01/23/2023 16:16:06 01/25/2023 08:56:23 Pain in right hip joint 2476744048 93408 M25.551 Pain of ri ght knee joint 9694954643 84853 M25.561 [id number] JAX Salas [facility] [place] [address] [place] [address] 05/05/2023 11:49:55 05/05/2023 13:09:43 History of right hip replacement 1018209298 665022 Z96.641 [id number] JAX Salas [facility] [place] [address] [place] [address] 05/22/2023 14:29:11 05/22/2023 15:26:53 History of total replacement of right hip joint 4940082273 12675 Z96.641 Health Concerns Section Related Observation LastModified by Organization Detai ls LastModified Time None Recorded Concern Status LastModified by Organization Details LastModified Time None Recorded Advance Directives Directive None Recorded Payers Encounter Date Sequence Insurance Name Policy Number Policy Hernandez Covered Member ID Hernandez Member ID Guarantor Name 01/23/2023 1 [facility] [id number] Valerie Hammond Lammert [id number] Valerie Hammond Lammert 05/05/2023 1 [facility] [id number] Valerie Hammond Lammert [id number] Valerie Hammond Lammert 05/22/2023 1 [facility] [id number] Valerie Hammond Lammert [id number] Valerie Hammond Lammert Notes Date Note Type Note Provider Name and Address Organization Details Recorded Time 01/23/2023 text/html Patient is a 57-year-old female who is referred by Dr. Soria for further evaluation of her right hip osteoarthritis. She was seen last in our office in April 2021. she had moderately severe osteoarthritis of the right hip with acetabular dysplasia at that time. She was prescribed diclofenac 50 mg twice daily. She was not convinced that that was any better than the ibuprofen so she went back the ibuprofen. Over the last 1 year her symptoms have worsened considerably and she comes in today to discuss total hip arthroplasty. 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 Last day of school is March 27. She has chronic low back pain. She had previous MRI scan of lumbar spine July 2020 with multilevel degenerative disc disease. Her chief complaint is pain in the anterior groin anterior thigh and down to the anterior knee. She notes that if she walks around the block she has severe pain there entire rest of the day. She did have a cortisone shot into her hip joint several years ago. She has had physical therapy. She does not use a gait aid. She denies any numbness or tingling in the right lower extremity. She does get pain in the lower back and right buttock as well. Walking and climbing stairs causes her the greatest difficulty. She has had no recent trauma. Margarito Champion MD [address] [place] [address], [facility] [address], [place], [address], [facility] 01/24/2023 19:47:54 OBGyn Episode No OBEpisode recorded.
[2025-02-07 10:51] LABS: Influenza A QL RT-PCR Negative (Negative); Influenza B QL RT-PCR Negative (Negative); SARS-CoV-2 RNA PCR Negative (Negative)
== END 2025-02-07 09:48 | disposition home or self-care (01) ==
LOC: ANHLAB 09:47
PROVIDERS: PCP Family Medicine; Visit Provider Physician Assistant
DX: J02.9 Acute pharyngitis, unspecified (principal); Z20.822 Contact with and (suspected) exposure to COVID-19
CPT/HCPCS: 87636

== ENCOUNTER 2025-09-12 | Day surgery (SDC) | payer OTHER, SELFPAY ==
--- OUTSIDE RECORDS SUMMARY | 2016-10-12 07:00 | XMS_ITS | Continuity of Care Document ---
Author Organization [facility] Address [address] [place] [address] [place] [phone] Phone Care Team Providers Care Mobile Device Engineer Name Role Phone Al DPBeatrice Carrasco Unavailable Unavailable Procedures Procedure Date THERAPEUTIC EXERCISES NEUROMUSCULAR RE-ED MANUAL THERAPY FUNC ACTIVITY PT RE-EVALUATION THERAPEUTIC EXERCISES NEUROMUSCULAR RE-ED MANUAL THERAPY FUNC ACTIVITY THERAPEUTIC EXERCISES NEUROMUSCULAR RE-ED MANUAL THERAPY FUNC ACTIVITY THERAPEUTIC EXERCISES NEUROMUSCULAR RE-ED FUNC ACTIVITY THERAPEUTIC EXERCISES NEUROMUSCULAR RE-ED MANUAL THERAPY FUNC ACTIVITY HOT/COLD PACK THERAPEUTIC EXERCISES NEUROMUSCULAR RE-ED MANUAL THERAPY FUNC ACTIVITY THERAPEUTIC EXERCISES NEUROMUSCULAR RE-ED MANUAL THERAPY FUNC ACTIVITY THERAPEUTIC EXERCISES MANUAL THERAPY HOT/COLD PACK PT EVALUATION THERAPEUTIC EXERCISES MANUAL THERAPY HOT/COLD PACK Advance Directives Directive Yes / No Effective Date File Name No Information Encounters Encounter Description Practice Location Reason(s) For Visit Diagnoses Date Provider Providers Copied on Encounter [address] [address], [place], [place], [id number], tel:[phone] [place] No Information Dec-0 7-201 6 Al Beatrice. [address] [place] [address], [address], [place], [facility], . tel:[phone] Referring Provider: Ramón Soria [address] [place] [address] [address], [place], [place], [facility]. tel:[phone], [place], [id number], tel:[phone] [place] No Information Oct-0 5-201 6 [place] Beatrice. [address] [place] [address], [address], [place], [facility], . tel:[phone] Referring Provider: Randy Fofana[address] [place] [address] [address], [place], [place], [facility]. tel:[phone], [place], [place], [id number], [place] tel:[phone] [place] No Information Sep-2 9-201 6 Al Beatrice. [address] [place] [address], [address], [place], [facility], . tel:[phone] Referring Provider: Maribel Fofana [facility] [address], [place], [address]. tel:[phone], [place], [id number], tel:[phone] Pe[place] No Information Sep-2 3-201 6 [place] Beatrice. [address] [place] [address], [address], [place], [facility], . tel:[phone] Referring Provider: Ramón Soria [address] [place] [address] [address], [place], [address]. tel:[phone], [place], [id number], tel:[phone] [place] No Information [address] [address] [facility], [address], [place], [place], [facility], . tel:[phone] Referring Provider: Ramón Soria [address] [place] [address] [address], [place], [facility]. tel:[phone] [address], [place], [id number], tel:[phone] Pe[place] No Information 6 Al Beatrice. [address] [place] [address], [address], [place], [place], [facility], . tel:[phone] Referring Provider: Ramón Soria [address] [place] [address] [address], [place], [facility]. tel:[phone] [place] [address], [id number], tel:[phone] [place] No Information 6 [place] Beatrice. [address] [place] [address], [address], [place], [place], [facility], . tel:[phone] Referring Provider: Ramón Soria [address] [place] [address] [address], [place], [facility]. tel:[phone], [id number], tel:[phone] Peel No Information 6 [place] Diana. . Referring Provider: Ramón Soria [address] [place] [address] [address], [place], [facility]. tel:[phone], [place], [place], [id number], tel:[phone] [place] Pain in right hipStiffness of right hip, not elsewhere classifiedMus chioma weakness (generalized) Low back painContractu re, right hipPostural lordosis, lumbar region Nov-0 8-201 [address] [facility], [address], [place], [address], [place]. tel:[phone] Referring Provider: Ramón Soria [address], [place], [address]. tel:[phone] Family History Family Member Type Diagnosis Age At Onset No Information Payers Payer name Insurance type Covered republican ID Authorleón villasenor(s) Luh [id number] [facility] 2016 Social History Type Description Quantity Date Captured Comments Sex Female Smoking Status No Information Chief Complaint And Reason For Visit No Information Reason For Referral Reason For Referral No Information History Of Present Illness Encounter Date Complaint History Of Prese nt Illness No Information Functional Status Date Functional Assessmen t No Information Instructions Date Instruction Additional Infor mation No Information Assessments Type Assessment Date No Information Patient Care Teams Name Effective Dates (start - stop) Status Members No Information
[2025-09-02 09:45] VITALS: BMI 24.5
--- OUTSIDE RECORDS SUMMARY | 2025-09-12 00:03 | XMS_ITS | Clinical Summary ---
Author Organization [facility] Address [address] [place] [address] Care Team Providers Care Resident Care Spec Name Role Phone Ramón Soria MD Primary Care Provider Allergies No known active allergies Medications DULoxetine DR (CYMBALTA) 30 mg capsuleIndicati ons:Anxiety with Depression Take 1 capsule (30 mg total) by mouth residence director before breakfast Active lamoTRIgine (LaMICtal) 150 mg tabletIndicatio ns:mood stabilizer Take 1 tablet (150 mg total) by mouth residence director before breakfast [address] (VOLTAREN) [...] (01/31/2023): Added automatically from request for surgery [id number] Immunizations Immunization Administration Dates Next Due Influenza, [...] on file 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 Gender Identity Female 07/15/2022 1:59 PM CDT [...] 5:39 PM CDT Height 167.6 cm (5' 6) 03/03/2023 12:1 0 PM CDT Body Mass [...] of 2) 2013 Covid-19 Vaccine (2 - 2024-2 6 season) 2025 09/29/2021 Influenza Vaccine (#1) 2025 09/29/2021 Pneumococcal vaccine <65 Aged Out No longer eligible based on patient's age to complete this topic Insurance [address] [id number] [facility] H[facility]/PPO Address: [facility] [address] [place] [address] [facility] CHO[facility] H[facility]/PPO Address: [address] [address] [place] [id number] [facility] CHO[employer] [facility] H[facility]/PPO Address: [place] [address] Care Teams Resident Care Spec Relationship Specialty Start Date End Date Ramón Soria MD [address] [facility] [address] [place] [address] PCP - General Family Medicine 07/15/22
--- OUTSIDE RECORDS SUMMARY | 2025-09-12 00:03 | XMS_ITS | Clinical Summary ---
Author Organization [facility] Address [address] [place]: Epic Prelude ADT ADY SARAH [address] Care Team Providers Care Intellectual Property Counsel Name Role Phone Unavailable Primary Care Provider Unavailabl e Allergies No known active allergies Medications methylPREDNISol one (MEDROL DOSPACK) 4 mg Tablets, Dose Pack Take by mouth as directed on package. 21 Each 03/25/2022 5:25 PM CDT 2 Active DULoxetine (CYMBALTA) 30 mg Capsule, Delayed Release(E.C.) Take 1 Capsule (30 mg) by mouth daily. 30 Capsule 1 07/20/2022 9:54 AM CDT 2 Active lamoTRIgine (LaMICtal) 25 mg tablet TAKE ONE TABLET BY MOUTH EVERY NIGHT AT BEDTIME FOR 2 WEEKS, THEN INCREASE TO TWO TABLETS BY MOUTH AT BEDTIME 42 Tablet 10/26/2022 4:06 PM QUEBRACHO TANNER 2 Active lamoTRIgine (LaMICtal) 100 mg tablet Take 1 Tablet (100 mg) by mouth daily at bedtime. 30 Tablet 11/26/2022 5:45 PM QUEBRACHO TANNER 2 Active benzonatate (TESSALON) 100 mg capsule Take 1 Capsule (100 mg) by mouth 3 times daily as needed for cough 30 Capsule 12/06/2022 5:23 PM QUEBRACHO TANNER 3 Active methylPREDNISol one (MEDROL DOSPACK) 4 mg Tablets, Dose Pack USE DIRECTED ON PACKAGE 21 Each 12/06/2022 5:23 PM QUEBRACHO TANNER 3 Active lamoTRIgine (LaMICtal) 150 mg tablet Take 1 Tablet (150 mg) by mouth daily at bedtime. 30 Tablet 12/21/2022 3:37 PM QUEBRACHO TANNER 3 Active diclofenac sodium (VOLTAREN) 75 mg Tablet, Delayed Release (E.C.) Take 1 Tablet (75 mg) by mouth 2 times daily with meals. 60 Tablet 1 03/21/2023 3:45 PM CDT 3 Active acetaminophen (TYLENOL) 500 mg tablet Take 2 Tablets (1,000 mg) by mouth every 6 hours. 90 Tablet 3 Active celecoxib (CeleBREX) 200 mg capsule Take 1 Capsule (200 mg) by mouth daily. 10 Capsule 04/25/2023 11:49 AM CDT 3 Active cephALEXin (KEFLEX) 500 mg capsule Take 1 Capsule (500 mg) by mouth every 6 hours. 28 Capsule 04/25/2023 11:49 AM CDT 3 Active apixaban (Eliquis) 2.5 mg tablet Take 1 Tablet (2.5 mg) by mouth every 12 hours. 70 Tablet 04/25/2023 11:49 AM CDT 3 Active ergocalciferol (VITAMIN D2) 50,000 unit capsule Take 1 Capsule (50,000 Units) by mouth every 7 days. 8 Capsule 04/25/2023 11:49 AM CDT 3 Active oxyCODONE (ROXICODONE) 5 mg tablet Take 0.5 Tablets (2.5 mg) by mouth every 4 hours. 30 Tablet 04/25/2023 11:49 AM CDT 3 Active polyethylene glycol (MIRALAX) 17 gram Powder in Packet Take 1 Packet (17 Grams) by mouth daily in the morning. 30 Each 04/25/2023 11:49 AM CDT 3 Active sennosides-docu sate sodium (SENNA-S) 8.6-50 mg tablet Take 2 Tablets by mouth every 12 hours. 60 Tablet 04/25/2023 11:49 AM CDT 3 Active DULoxetine (CYMBALTA) 30 mg Capsule, Delayed Release(E.C.) Take 1 Capsule (30 mg) by mouth every other day. 45 Capsule 04/23/2024 11:47 AM CDT 4 Active lamoTRIgine (LaMICtal) 150 mg tablet Take 1 Tablet (150 mg) by mouth daily at bedtime. 90 Tablet 08/15/2024 6:30 PM CDT 4 Active lamoTRIgine (LaMICtal) 150 mg tablet Take 1 Tablet (150 mg) by mouth daily at bedtime. 30 Tablet 05/14/2024 11:41 AM CDT 4 Active sertraline (ZOLOFT) 25 mg tablet Take 1 Tablet (25 mg) by mouth daily. 30 Tablet 05/14/2024 11:41 AM CDT 4 Active DULoxetine (CYMBALTA) 30 mg Capsule, Delayed Release(E.C.) Take 1 Capsule (30 mg) by mouth daily. 30 Capsule 4 Active lamoTRIgine (LaMICtal) 150 mg tablet Take 1 Tablet (150 mg) by mouth daily. 30 Tablet 4 Active DULoxetine (CYMBALTA) 30 mg Capsule, Delayed Release(E.C.) Take 1 Capsule (30 mg) by mouth every evening 90 Capsule 12/29/2024 11:57 AM QUEBRACHO TANNER 4 Active lamoTRIgine (LaMICtal) 150 mg tablet Take 1 Tablet (150 mg) by mouth daily at bedtime. 90 Tablet 11/18/2024 3:16 PM QUEBRACHO TANNER 4 Active sertraline (ZOLOFT) 25 mg tablet Take 1 Tablet (25 mg) by mouth daily. 90 Tablet 10/31/2024 3:58 PM QUEBRACHO TANNER 4 Active DULoxetine (CYMBALTA) 30 mg Capsule, Delayed Release(E.C.) Take 1 Capsule (30 mg) by mouth daily. 30 Capsule 5 Active lamoTRIgine (LaMICtal) 150 mg tablet Take 1 Tablet (150 mg) by mouth daily. 30 Tablet 12/29/2024 11:57 AM QUEBRACHO TANNER 5 Active sertraline (ZOLOFT) 25 mg tablet Take 1 Tablet (25 mg) by mouth daily. 90 Tablet 12/29/2024 11:57 AM QUEBRACHO TANNER 5 Active hydrOXYzine HCL (ATARAX) 10 mg tablet Take 1 Tablet (10 mg) by mouth 1 time daily as needed. 30 Tablet 11/18/2024 3:16 PM QUEBRACHO TANNER 5 Active lamoTRIgine (LaMICtal) 150 mg tablet Take 1 Tablet (150 mg) by mouth daily at bedtime. 90 Tablet 5 Active sodium sulfate-potassi um CHLORIDE-magnes ium SULFATE (Sutab) 1.479-0.188- 0.225 gram Tablet Use as directed on package directions 24 Tablet 09/05/2025 5:07 PM CDT 5 Active amoxicillin (AMOXIL) 500 mg capsule Take 4 Capsules (2,000 mg) by mouth one hour prior to dental appointment. 12 Capsule 04/04/2025 3:06 PM CDT 5 Active atorvastatin (LIPITOR) 20 mg tablet Take 1 Tablet (20 mg) by mouth daily. 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 Gender Identity Not on file Sexual Orientation Not on file Plan of Treatment Health Maintenance Due Date Last Done Comments DTAP/TDAP/TD VACCINES (1 - Tdap) 1982 HPV/Cotest (21-29) 1984 CERVICAL CANCER SCREENING 1993 HPV/Cotest (30-65) 1993 PAP SMEAR 1993 BREAST CANCER SCREENING 2003 COLORECTAL SCREENING 2008 Colorectal Cancer Screening 2008 FIT-DNA Q 3 years 2008 FIT/FOBT Q 1 year 2008 Flex Sig/CT Colonography Q 5 years 2008 ZOSTER VACCINE (1 of 2) 2013 INFLUENZA VACCINE (#1) 2025 RSV VACCINE (60+ or ) (1 - 1-dose 75+ series) 2038 Insurance RX [employer] (INTERNAL) [facility]
--- OUTSIDE RECORDS SUMMARY | 2025-09-12 00:04 | XMS_ITS | Data Portability ---
Author Organization [place] [facility] [employer], Main Office Address [address] [place] [address] Care Team Providers Care Business Support Assistant Name Role Phone EILEEN SORIA Primary Care [...] more than half the time spent in sfea-np-noqc care [email or web address] Not available 01/24/2023 19:47:39 05/05/2023 [...] taking the high-dose vitamin-D is also taking [id number]-ohwleqm Citracal with vitamin-D at this point. Her [...] pelvis, unilateral 2022 023 [email or web address] [facility] [place], [address], [place], [address], 3 16:25:15 XR, knee 2022 023 [email or web address] [facility], [address], [place], [address], 3 10:06:01 XR, hip + pelvis, unilateral 2022 023 [email or web address] [facility], [address], [place], [address], 3 10:06:01 Medication Orders diclofenac sodium 75 mg tablet,porter yed release 2022 023 [email or web address] [facility], [address] , [place], [place], [id number], 3 11:54:13 Patient TargetsNo targets recorded. Patient InstructionsNo instructions recorded. Reason for Referral None Reported. Results Created Date Observation Date Name Description Value Unit Range Abnormal Flag Note LastModifiedBy Organization Detail LastModifiedTime 02/27/20 21 02/26/2021 XR, hip, unila teral , 2 or 3 view No observ ation record ed. [id number] [facility] [address], [place], [address], 01/04/2023 02:52:14 01/24/20 23 XR, hip + pelvi s, unila teral No observ ation record ed. [email or web address] [facility] [address], [place], [address], 01/24/2023 19:35:35 01/24/20 23 XR, knee No observ ation record ed. [email or web address] [facility] [address], [place], [address], 01/24/2023 19:36:00 04/18/20 23 03/31/2023 elect brandiear diogr am No observ ation record ed. [email or web address] Not Available 2022 11:58:04 04/24/20 23 04/24/2023 XR, hip + pelvi s, unila teral No observ ation record ed. [place] [id number], [place], [address], 04/24/2023 16:25:35 04/24/20 23 04/24/2023 XR, hip + pelvi s, unila teral No observ ation record ed. [address], [place], [address], 04/24/2023 16:25:51 05/22/20 23 XR, hip + pelvi s, unila teral No observ ation record ed. [email or web address] [facility] [address], [place], [address], 05/22/2023 15:07:17 Result Notes None recorded. Problems Name Problem SNOMED Code Status Onset Date Resolution Date Notes Provider Name and Address Organization Details Recorded Time Pain of right hip joint 883123666276538 Active 2022 ETTA Maier, [facility] [employer] [facility] 3 16:34:05 Pain of right knee joint 785930767747107 Active 2022 ETTA Maier elvin, [facility] [employer] [facility] 3 17:00:23 Problem Notes None recorded. Procedures Surgical History Date Name Laterality Status Provider Name and Address Organization Details Recorded Time procedure on elbow completed Not Available [facility] 01/04/2023 02:42:04 Imaging Results None recorded. Procedure Notes None recorded. Medical Equipment None [...] Available Not Available Not Available amoxicillin 875 mg-camu m clavulanate 125 mg tablet 07/08 completed [...] Updated DateTime 01/23/2023 165.1 cm 26.1 kg/m2 55706 g ETTA Maier [employer] [facility] [employer] 01/23/2023 16:38:21 Date Recorded Body mass index (BMI) Body height Body weight Provider Name and Address Organization Details Last Updated DateTime 02/26/2021 24.5 kg/m2 165.1 cm 03156.08 g Not Available [facility] 01/04/2023 02:43:13 Date Recorded Body height Provider Name an d Address Organization Details Last Updated DateTime 05/03/2021 165.1 cm Not Available [facility] 02:43:12 Date Recorded Body height Provider Name an d Address Organization Details Last Updated DateTime 05/05/2023 165.1 cm Tamar Castellon Juanis [employer] [facility] [employer] [facility] 05/05/2023 11:54:02 Date Recorded Body height Provider Name an d Address Organization Details Last Updated DateTime 05/22/2023 165.1 cm Tamar Castellon [facility] [employer] [facility] [employer] 05/22/2023 14:31:19 Social History Question Answer Notes LastModified by Organizat ion Details LastModified Time Tobacco Smoking Status Unknown If Ever Smoked Not Available [facility] 01/04/2023 02:34:13 What Was The Date Of Your Most Recent Tobacco Screening? 02/26/2021 [id number] Information not available 01/04/2023 Sex: Unknown Functional Status Question Answer Note LastModified by Organizat ion Details LastModified Time What is your level of alcohol consumption? None [id number] Information not available 01/04/2023 Mental Status None recorded. Family History Relationship Description Onset Age of this Age Resolved Age Notes LastModified by Organization Details LastModified Time Father Heart disease [id number] Not available 01/04/2023 02:42:07 Father Family history of malignant neoplasm [id number] Not available 01/04/2023 02:42:07 Father Hypertensive disorder [id number] Not available 01/04/2023 02:42:07 Brother Heart disease [id number] Not available 01/04/2023 02:42:07 Unspecified Relation Diabetes mellitus aunt [id number] Not available 01/04/2023 02:42:07 Medical History Condition Response ARTHRITIS Y OSTEOPOROSIS Y Gynecological HistoryNo gynecological history recorded. Obstetrics History GPAL:G 0 P 0 0 0 0 Past Encounters Encounter ID Performer Location Encounter Start Date Encounter Closed Date Diagnosis/Indication Diagnosis SNOMED-CT Code Diagnosis ICD10 Code Diagnosis IMO Codes Diagnosis Note [id number] Margarito Champion MD [facility] [place] [address] [place] [address] 02/26/2021 00:00:00 2021 22:11:51 [id number] Margarito Champion MD [facility] [place] [address] [place] [address] 05/03/2021 00:00:00 05/03/2021 17:48:21 [id number] Margarito Champion MD [facility] [place] [address] [place] [address] 01/23/2023 16:16:06 01/25/2023 08:56:23 Pain of right hip joint 8920960191 67625 M25.551 Pain of ri ght knee joint 0901463280 86275 M25.561 [id number] Margarito Champion MD [facility] [place] [address] [place] [address] 05/05/2023 11:49:55 05/05/2023 13:09:43 History of right hip replacement 7679073451 027288 Z96.641 [id number] Margarito Champion MD [facility] [place] [address] [place] [address] 05/22/2023 14:29:11 05/22/2023 15:26:53 History of total replacement of right hip joint 5032824439 39192 Z96.641 Health Concerns Section Related Observation LastModified by Organization Detai ls LastModified Time None Recorded Concern Status LastModified by Organization Details LastModified Time None Recorded Advance Directives Directive None Recorded Payers Insurance Date Sequence Insurance Name Policy Number Policy Hernandez Covered Member ID Hernandez Member ID Guarantor Name 06/16/2023 1 [facility] [id number] Valerie Rojas [id number] Valerie Rojas Notes Date Note Type Note Provider Name [...] had no recent trauma. Margarito Champion MD [address], [place], [address], [facility] [employer] [facility] 01/24/2023 19:47:54 OBGyn Episode No OBEpisode recorded.
--- OUTSIDE RECORDS SUMMARY | 2025-09-12 00:04 | XMS_ITS | Clinical Summary ---
Author Organization [facility] Address [facility] [place] [address] Care Team Providers Care Nuisance Wildlife Control Operator Name Role Phone Dianne Walker MD Primary Care Provider [phone] Social History Tobacco Use Types Packs/Day Years Used Date Smoking Tobacco: Never Assessed Comments Unknown Sex and Gender Information Value Date Recorded Sex Assigned at Not on file Legal Sex Female 7:08 PM CDT Gender Identity Not on file Sexual Orientation Not on file Plan of Treatment Health Maintenance Due Date Last Done Comments Cervical Cancer Screening Pa p Smear (Age 30 to 64) Every 3 Years 1963 Colorectal Cancer Screening Colonoscopy (10 Years) 1963 Annual Physical 1966 Hepatitis C 1981 DTaP, Tdap and Td Vaccines ( 1 - Tdap) 1982 Cervical Cancer Screening Pa p with HPV Testing (Age 30 to 64) Every 5 Years 1993 Cervical Cancer Screening with HPV 1993 Mammogram Screening 2003 Pneumococcal Vaccine: 50+ Ye ars (1 of 1 - PCV) 2013 Zoster Vaccines (1 of 2) 2013 COVID-19 Vaccine ( - 2024-2 6 season) 2025 Influenza Adult (#1) 2025 RSV Immunization or 60+ Years (1 - 1-dose 75+ series) 2038 Hepatitis A Vaccines Aged Out No long er eligible based on patient's age to complete this topic Meningococcal B Vaccine Aged Out No l onger eligible based on patient's age to complete this topic Meningococcal Vaccine Aged Out No bhaskar robles eligible based on patient's age to complete this topic RSV Immunizations Under 20 Months Aged Out No longer eligible based on patient's age to complete this topic Care Teams Nuisance Wildlife Control Operator Relationship Specialty Start Date End Date Dianne Walker MD [address] [place] [address] [facility] - General 12/20/12
--- OUTSIDE RECORDS SUMMARY | 2025-09-12 00:04 | XMS_ITS | Data Portability ---
Author Organization [facility] Address [address] [place] [address] [place] [address] Care Team Providers Care Personal Banking Officer Name Role Phone EILEEN TUCKER Primary Care Provider Assessment Encounter Date Assessment Date Assessment LastModified by Organization Details LastModified Time 02/17/2025 02/17/2025 Annual gynecological exam performed. Patient will come back in a year unless there are new symptoms. [email or web address] Not available 02/17/2025 16:46:02 Plan of Treatment Reminders Order Date Submit Date Provider Last Modified By Organization Details Last Modified Time Details Appointments None recorded. Lab pap, IG + HR HPV - HPV regardless but if HPV is positive need subtyping 16,18/45 2024 025 [facility] (Lab), [address], [place], [address], 5 16:36:16 Referral None recorded. Procedures colonoscop y screening (PROC) 2024 025 [facility], [address], [address], [place], [address], 5 12:57:02 Surgeries None recorded. Imaging MAMMO, screening, digital, bilateral [address] [facility], [address], [address], [place], [address], 5 11:23:22 DEXA, axial skeleton + vertebral fracture assessment [id number] [place] [address] Radiology, [address], [place], [address], 11:23:22 Medication Orders None recorded. Patient TargetsNo targets recorded. Patient InstructionsNo instructions recorded. Reason for Referral None Reported. Results Created Date Observation Date Name Description Value Unit Range Abnormal Flag Note LastModifiedBy Organization Detail LastModifiedTime 02/18/2002/17/2025 IMAGE GUIDE D PAP AND HPV REGAR DLESS image guided Pap, HPV regardless of Pap result SEE RESULT S BELOW CASE REPOR T: Cytol ogy Gynec ologi abbey Repor t Case: [id number] Autho vijay g Provi lópez: Dermo dy, Kinjal , ANP, CONCERT PROMOTER Colle cted: 02/17 1700 Order ing Locat ion: [place] [facility] Recei chris: 02/18 0222 First Scree n: [place], CT Speci men: Scree daniel Pap - Image d, Cervi x STATE MENT OF ADEQU ACY: Satis facto ry for evalu ation Trans forma tion zone compo nent canno t be defin itive ly ident ified due to the prese nce of atrop hy or other hormo nal valero es ----- ----- ----- ----- ----- ----- ----- ----- ----- ----- ----- ----- ----- ----- ----- ----- ----- ---- FINAL DIAGN OSIS: Negat andrew for Intra epith alfonso rodríguez or Peter jamison ([facility]) . Atrop hic dewayne austin rn. Elect vinay mckeon d by [place], CT on 2024 at 1532 CDT ----- ----- ----- ----- ----- ----- ----- ----- ----- ----- ----- ----- ----- ----- ----- ----- ----- ---- HPV RESUL TS: HPV mRNA E6/E7 : No HPV mRNA Detec ari NOTE: This high risk HPV mRNA assay detec ts fourt een high- risk HPV types (16, 18, 31, 33, 35, 39, 45, 51, 52, 56, 58, 59, 66, 68) witho ut diffe renti ation . COMME NT: This speci men was revie wed by a Cytot echno logis t and/o r Patho logis t (as indic ated in this repor t) after evalu ation using the Thinp rep Imagi ng Syste m. CLINI ABBEY INFOR MATIO N: Menst rual Statu s: LMP (if appli cable ): Clini abbey Histo ry/Pr eviou s Pap: Type of Neopl camila (if appli cable ): Signi fican t Clini abbey Findi ngs: Other Histo ry: Hormo kimani (if appli cable ): PAP EDUCA BRANDY L NOTE: The Pap Test is a scree daniel test with an inher ent false negat andrew rate. Liqui d-bas ed sampl ing may decre ase, but will not elimi tiffany, false negat andrew resul ts. A negat andrew resul t does not precl ude the prese nce and/o r devel opmen t of disea se, since the prese nce of abnor mal cells in the sampl e depen ds on the locat ion of the lesio n and sampl ing techn ique. Karen nued regul ar scree daniel is the best metho d of cance r preve ntion . If repor air cytol ogic findi ng do not corre late with physi abbey and/o r histo rical findi ngs, furth er inves tigat ion is recom wilbert d, as clini thalia andrea nted. Not Available [facility] (Lab) [address], [place], [address], 02/18/2025 16:36:16 Result Notes None recorded. Procedures Surgical History Date Name Laterality Status Provider Name and Address Organization Details Recorded Time 04/06/20 prosthetic arthroplasty of hip completed [facility] 02/17/2025 17:00:02 Imaging Results None recorded. Procedure Notes None recorded. Medical Equipment None Reported. Allergies No known drug allergies Medications Name Sig Start Date Stop Date Status Note LastModified by Organization Details LastModified Time ofloxacin 0.3 % eye drops INSTILL 10 DROPS INTO THE RIGHT EAR DAILY FOR 7 DAYS 02/17 completed Not Available Not Available Not Available lamotrigine 25 mg tablet active Not Available Not Available Not Available sertraline 25 mg tablet active Not Available Not Available Not Available amoxicillin 875 mg-potassium clavulanate 125 mg tablet TAKE 1 TABLET BY MOUTH TWICE DAILY FOR 7 DAYS 02/17 completed Not Available Not Available Not Available duloxetine 30 mg capsule,porter yed release sprinkle active Not Available Not Available Not Available Vitals Date Recorded Body height Body mass index (BMI) Body weight Systolic And Diastolic Provider Name and Address Organization Details Last Updated DateTime 02/17/2025 167.64 cm 23.9 kg/m2 29173.67 g 107/77 mm[Hg] [facility] 02/17/2025 16:57:32 Social History Question Answer Notes LastModified by Organizat ion Details LastModified Time Tobacco Smoking Status Never Smoker [facility] 02/17/2025 16:46:45 Do You Have An Advance Directive? No [email or web address] Information n ot available 02/17/2025 Are You Blind Or Do You Have Difficulty Seeing? No [email or web address] Information n ot available 02/17/2025 What Is Your Level Of Caffeine Consumption? Moderate [email or web address] Information not available 02/17/2025 In The 14 Days Before Symptom Onset, Have You Had Close Contact With A Laboratory-confirm ed COVID-19 While That Case Was Ill? No [email or web address] Information n ot available 02/17/2025 In The 14 Days Before Symptom Onset, Have You Had Close Contact With A Person Who Is Under Investigation For COVID-19 While That Person Was Ill? No Information not available 02/17/2025 Have You Been To An Area Known To Be High Risk For COVID-19? No Information not available 02/17/2025 Are You Deaf Or Do You Have Serious Difficulty Hearing? No [email or web address] Information not available 02/17/2025 What Type Of Diet Are You Following? REGULAR [email or web address] Information n ot available 02/17/2025 What Is The Highest Grade Or Level Of School You Have Completed Or The Highest Degree You Have Received? SR13670-1 [email or web address] Information not available 02/17/2025 Are There Any Guns Present In Your Home? No Information not available 02/17/2025 Do You Use Protection During Sex? No Information not available 02/17/2025 Do You Use Your Seat Belt Or Car Seat Routinely? Yes [email or web address] Information not available 02/17/2025 Are You Sexually Active? No [email or web address] Information not available 02/17/2025 Do You Have Smoke And Carbon Monoxide Detectors In Your Home? Yes [email or web address] Information not available 02/17/2025 How Much Tobacco Do You Smoke? No [email or web address] Information not available 02/17/2025 Do You Use Sunscreen Routinely? Yes [email or web address] Information not available 02/17/2025 Have You Used IV Drugs? No [email or web address] Information not available 02/17/2025 Do You Have Difficulty Walking Or Climbing Stairs? No [email or web address] Information not available 02/17/2025 Sex: Unknown Functional Status Question Answer Note LastModified by Organizat ion Details LastModified Time Do you use any illicit or recreational drugs? No [email or web address] Information not available 02/17/2025 What is your level of alcohol consumption? None [email or web address] Information not available 02/17/2025 Are you currently employed? Yes [email or web address] Information not available 02/17/2025 Are you able to walk independently without assistance or assistive devices? YESWOREST [email or web address] Information not available 02/17/2025 Are you able to care for yourself independently? 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 No [email or web address] Information not available 02/17/2025 What is your exercise level? Occasional [email or web address] Information not available 02/17/2025 Mental Status Question Answer Note LastModified by Organization D etails LastModified Time Do you feel stressed (tense, restless, nervous, or anxious, or unable to sleep at night)? [id number] [email or web address] Information not available 02/17/2025 Family History Relationship Description Onset Age of this Age Resolved Age Notes LastModified by Organization Details LastModified Time Paternal Aunt Anxiety disorder [email or web address] Not available 2024 16:45:45 Paternal Grandfather Heart disease [email or web address] Not available 2024 16:45:45 Father Anxiety disorder [email or web address] Not available 2024 16:45:45 Father Hypertensive disorder Not available 2024 16:45:45 Father Heart disease Not available 2024 16:45:45 Medical History Condition Response Anxiety Disorder Y Arthritis Y Depression/ depression Y Osteoporosis N Gynecological History Statement/Question Response Abnormal Pap N Date of Last Mammogram On BCP's at Conception? N N STIs/STDs N HPV Vaccine N Age at First Child 34 If Post Menopausal, Age at Menopause 48 Date of Last Colonoscopy Sexually Active? N None Date of Last Pap Smear Sexual Problems? N Desired Control Method None LMP Unknown Obstetrics History GPAL:G 3 P 2 0 1 2 Type Value Full Term 2 Spontaneous 1 Living 2 Total 3 Past Encounters Encounter ID Performer Location Encounter Start Date Encounter Closed Date Diagnosis/Indication Diagnosis SNOMED-CT Code Diagnosis ICD10 Code Diagnosis IMO Codes Diagnosis Note [id number] Soren Su MD [facility] [address] [address] 02/17/2025 16:32:54 02/17/2025 17:30:15 Gynecologic examination 89390083 Z01.419 Annual gynecologi abbey exam performed. Patient will come back in a year unless there are new symptoms. Suggest Calcium with Vitamin D if not eating in diet. Patient advised to get annual flu shot. Recommend yearly physicals and perform monthly breast exams. Genetic testing is available for patients with family history of cancer. Engage in safe sexual practices, use condoms. Encouraged to have daily exercise. Avoid tobacco and illicit drugs, moderation of alcohol. If BMI greater than 25 dietary consult advised. If you have any questions please call or email. mammogram- order given, pt to schedule colon cancer screening - DUE; referral to [facility] for colonoscop y DEXA scan- dexa scan ordered (hx of osteoarthr itis and right hip replacemen t) Pap smear- pap w/ HPV collected laboratory evaluation - PCP STI testing - declined Screening mammography 24 104104 Z12.31 Screening for osteoporosis 542391233 Z13.820 Screening for malignant neoplasm of colon 838661985 Z12.11 Health Concerns Section Related Observation LastModified by Organization Detai ls LastModified Time None Recorded Concern Status LastModified by Organization Details LastModified Time None Recorded Advance Directives Directive N: Payers Insurance Date Sequence Insurance Name Policy Number Policy Hernandez Covered Member ID Hernandez Member ID Guarantor Name 02/17/2025 1 [facility] [id number] Valerie Rojas [id number] Valerie Rojas Notes Date Note Type Note Provider Name and Address Organization Details Recorded Time 02/18/20 25 text/htm l Annual Client Services Analyst Post-MenopausalReported by PatientGenitourinary symptomsFor menopausal symptoms, patient reportsno menopausal symptomsandnormal vaginal lubrication. For vaginal bleeding, patient reportshistory of menopause having occurredandno history of post menopausal bleeding. For urinary symptoms, patient reportsno hematuria,no incontinence,no nocturia, andno urinary frequency. For vulva, patient reportsno genital lesionandno vulvar atrophy. For vagina, patient reportsnormal vaginal dischargeandno vaginal atrophy.Breast symptomsFor breast, patient reportsno breast lump,no nipple discharge, andno breast pain.Psychological symptomsFor psychological symptoms, patient reportsdepressionandanxiety(sta ble; managed by psychiatrist; denies si/hi). For sexual complaints, patient reportsno sexual complaints.Preventative measuresFor preventive measures, patient reportsencourage regular mammograms starting age 40,encourage self breast examination,encourage regular exercise, andencourage no tobacco use. New patient presents to establish care.Post-menopausal, denies bleeding. [facility], [facility] 02/18/2025 14:18:36 OBGyn Episode Ob Episode Information Episode Created Date Number of Fetuses Patient Bloodtype Patient rh Status Prepregnancy Weight lbs Domestic Partner Domestic Partner Phone Father Name Central Communications Specialist Status 02/18/20 25 1 CLOSED Fetus Data First Name Last Name Admitted to NICU Weight (g) Sex Living Outcome Pediatric Complications Fetus ID Race Codes Race Delivery Type 3345.24 1 F Full Term [id number] Vaginal Delivery Sonny Calculation Initial Sonny Date Initial Exam Date Initial Exam Provider Initial Ultrasound Date Last Menstrual Period Date Ultra Sound Weeks Gestation 0 Eighteen To Twenty Week Sonny Update Ultra Sound Date Fundal Height At Umbil Quickening Date Ultra Sound Latest Weeks Gestation Final Sonny Confirmed By Final Sonny Confirmed Date Final Sonny Date Ultra Sound Latest Days Gestation 0 0 Menstrual History Last Menstrual Date Menses Monthly On Bcp Conception Prior Menses Frequency Hcg Plus Date Menarche Onset Age Delivery Information Delivery Date Delivery Type Labor Anesthesia Weeks Gestation Incision Type Labor Labor Length Hrs Delivered By Post Complications Tubal Sterilization Discharge Date Comments 9 Discharge Information Feeding Method Contraceptive Method Maternal HG B and HCT Levels Ob Episode Information Episode Created Date Number of Fetuses Patient Bloodtype Patient rh Status Prepregnancy Weight lbs Domestic Partner Domestic Partner Phone Father Name Central Communications Specialist Status 02/18/20 25 1 CLOSED Fetus Data First Name Last Name Admitted to NICU Weight (g) Sex Living Outcome Pediatric Complications Fetus ID Race Codes Race Delivery Type 3061.74 6 F Full Term [id number] Vaginal Delivery Sonny Calculation Initial Sonny Date Initial Exam Date Initial Exam Provider Initial Ultrasound Date Last Menstrual Period Date Ultra Sound Weeks Gestation 0 Eighteen To Twenty Week Sonny Update Ultra Sound Date Fundal Height At Umbil Quickening Date Ultra Sound Latest Weeks Gestation Final Sonny Confirmed By Final Sonny Confirmed Date Final Sonny Date Ultra Sound Latest Days Gestation 0 0 Menstrual History Last Menstrual Date Menses Monthly On Bcp Conception Prior Menses Frequency Hcg Plus Date Menarche Onset Age Delivery Information Delivery Date Delivery Type Labor Anesthesia Weeks Gestation Incision Type Labor Labor Length Hrs Delivered By Post Complications Tubal Sterilization Discharge Date Comments 2 Discharge Information Feeding Method Contraceptive Method Maternal HG B and HCT Levels
--- OUTSIDE RECORDS SUMMARY | 2025-09-12 00:04 | XMS_ITS | Encounter Summary ---
Author Organization [facility] Address [address] 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
--- OUTSIDE RECORDS SUMMARY | 2025-09-12 00:04 | XMS_ITS | Clinical Summary ---
Author Organization [facility] Address [address] [place] [address] Care Team Providers Care Educational Interpreter Name Role Phone Ramón Soria MD Primary Care Provider [phone] Source Comments [facility],non-owned Affiliates and Associated Physician Practices is amultiple site organization consisting of ambulatory clinics and hospital sitesin [place], [place], [place] and [place]. This disclosure is being madepursuant to the Care Everywhere program and may not contain all information available regarding this patient. Last updated 18.[facility] Allergies No known active allergies Medications * Be aware that medications may not be up to date on this document. Alwaysverify current medications with the patient. DULoxetine (CYMBALTA) 30 MG capsule Take 30 mg by mouth once daily Active albuterol HFA (PROVENTIL;JESIKA RAJI;PROAIR) 108 (90 Base) MCG/ACT inhalerIndicatio ns:Acute bronchitis, unspecified organism Inhale 2 puffs by mouth every 6 hours as needed for Wheezing or Cough 1 Inhaler 0 Active fluticasone propionate (FLONASE) 50 MCG/ACT nasal sprayIndications :Acute otitis media, unspecified otitis media type [place] 2 sprays into each nostril once daily 1 g 0 Active Active Problems No known active problems Family History Medical History Relation Name Comments Hypertension Father Other - Anesthesia Father Other - Cardiac Father heart diseas e Relation Name Status Comments Father Social History Tobacco Use Types Packs/Day Years Used Date Smoking Tobacco: Former Smokeless Tobacco: Never Comments No Sex and Gender Information Value Date Recorded Sex Assigned at Not on file Legal Sex Female 10:00 AM CDT Gender Identity Not on file Sexual [...] 11:57 AM CDT Height 167.6 cm (5' 6) 01/17/2020 11:57 AM CDT Body Mass Index [...] SCREENING 1963 LIPID TESTING 1963 MAMMOGRAM 1963 HIV SCREENING 1978 HEPATITIS C SCREENING 04/12/1981 DTAP/TDAP/TD VACCINES (1 - Tdap) 1982 PNEUMOCOCCAL VACCINE 50+ (1 of 1 - PCV) 2013 ZOSTER VACCINE (1 of 2) 2013 SCREENING FOR DIABETES 01/17/2020 DEPRESSION SCREENING 11/06/2024 COVID-19 VACCINE (2 - 2024-2 6 season) 2025 09/29/2021 INFLUENZA VACCINE (#1) 2025 09/29/2021 Respiratory Syncytial Virus (RSV) Vaccine Pt: or [...] patient's age to complete this topic Insurance CARE Member Subscriber Plan / Payer (Ef fective 2021-Present) Name:Valerie Rojas Relation to Subscriber:Self Name:Valerie Rojas Payer ID:[id number] (NAIC) Type:HMO Address: [place] [id number] Care Teams Educational Interpreter Relationship Specialty Start Date End Date Ramón Soria MD [address] [place] [id number] PCP - General Family Medicine 04/20/18
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
--- OUTSIDE RECORDS SUMMARY | 2025-09-12 00:04 | XMS_ITS | Encounter Summary ---
Author Organization [employer] Address [address] [place] [address] Care Team Providers Care Finish Filer Name Role Phone Unavailable Primary Care Provider Unavailabl e Encounter Details Date Type Department Care Team (Late st Contact Info) Description 09/04/1998 Outpatient Historical [facility] Hugo Mathis MD [address] [facility] [address] [place] [address] Other and unspecified alcohol dependence, unspecified drinking behavior (CMS/HCC) (Primary Dx) Social History Tobacco Use Types Packs/Day Years Used Date Smoking Tobacco: Never Assessed Comments Unknown Sex and Gender Information Value Date Recorded Sex Assigned at Not on file Legal Sex Female 4:44 AM [employer] [employer] [facility] Gender Identity Not on file Sexual Orientation Not on file documented as of this encounter Plan of Treatment Not on file documented as of this encounter Visit Diagnoses Diagnosis Other and unspecified alcohol dependence, unspecified drinking behavior (CMS/HCC)- Primary Other and unspecified alcohol dependence, unspecified drinking behavior documented in this encounter
[2025-09-12 08:17] VITALS: BP 115/60; PULSE 95; RESP 16; TEMP 36.1; O2SAT 99; BMI 24.5
[2025-09-12] MEDS: LACTATED RINGERS 1,000 ML 150 ML IV CONT (08:27)
--- NOTE | 2025-09-12 08:42 | WPDANESEPPF ---
Anes - Initial Pre Proc Eval Procedure: Operation Date: 09/12/25 09:30 Proposed Procedures p Screening Colonoscopy - Carson Serrano MD Date/Time: 09/12/25 08:42 Surgeon: Carson Serrano MD Pre Op Diagnosis: Screening Patient Data Age: 60 Gender: F Height: 1.65 m Weight: 66.8 kg Last Vital Signs Temp 36.1 C L 09/12/25 08:17 Pulse 95 09/12/25 08:17 Resp 16 09/12/25 08:17 BP 115/60 09/12/25 08:17 Pulse Ox 99 09/12/25 08:17 O2 Del Method Room Air 09/12/25 08:17 Allergies Allergy/AdvReac Type Severity Reaction Status Date / Time No Known Allergies Allergy Verified 09/12/25 08:14 Home Medications ?Medication ?Instructions ?Recorded ?Confirmed ?Type duloxetine 30 mg capsule,delayed 30 mg PO EVERY OTHER DAY 03/31/23 09/12/25 History release (Cymbalta) lamotrigine 150 mg tablet 150 mg PO HS 03/31/23 09/12/25 History sertraline 25 mg tablet 25 mg PO DAILY 02/26/25 09/12/25 History sodium sul 1.479 gram-potas ch See Rx Instructions PO PER PKG DIR 03/05/25 09/12/25 Rx 0.188 gram-magnes sul 0.225 gram #24 tabs tablet (Sutab) atorvastatin 20 mg tablet (Lipitor) 20 mg PO DAILY #90 tabs 06/10/25 09/12/25 Rx Patient hx anesthesia problems: none Family hx anesthesia problems: none Results Review: All pre-operative results and documents have been reviewed as part of the pre-operative evaluation. [facility] Past Medical History Medical History HLD (hyperlipidemia) Anxiety and depression Depression Surgical History Surgical History Status post total hip replacement, right H/O elbow surgery Family History Family History Father Hypertension Family history of coronary artery disease Social History Social History Social History: The patient is and lives with her . She has 2 children. She works for the [employer]. Lifelong nonsmoker. She does not use any alcohol marijuana or illicit drugs. Code status full code Smoking packs per day: 0.5 Smoking cigarettes per day: 10.0 Years smoked: 7 Smoking pack-years: 3.50 Smoking status: Former smoker Tobacco type: cigarettes Smoking end date: 05/06/95 Alcohol intake: never Substance use: current Substance use type: marijuana Other substance usage details: Occasionally Lack of Transportation: No Lack of Food: Never True Current Housing: I Have Housing Concerned About Future Housing: No Difficulty Paying Gas/Electric Bills: No Difficulty Paying for Meds: No Currently Unemployed: No Education: Don't Know Difficulty w/ Childcare or Family Care: No Living arrangements: with family Additional living arrangements comments: [facility] Occupation/Education: occupation Gender identity (if verbalized by the patient): Female Sexual Orientation (if Verbalized by the Patient): Straight or Heterosexual Spiritual care concerns: No Anes - Eval Final PreProcedure Day of Procedure 09/12/25 08:42 Patient weight: normal Heart: regular rate and rhythm Lungs: clear to auscultation Airway: Mallampati scale class II Neurological: alert and oriented Last oral intake: >/= 8 hours ASA classification: III Emergent: no Anesthetic plan: proceed Anesthesia type and monitoring: general GIVS and standard monitoring Results Review: All pre-operative results and documents have been reviewed as part of the pre-operative evaluation. Informed Consent: The patient's anesthetic plan and its attendant risks and benefits were discussed with the patient/family/POA. Questions were solicited and answers provided to the satisfaction of the patient/family/POA.
--- NOTE | 2025-09-12 09:28 | PM.IMHP ---
H&P: HPI History of Present Illness Date/Time: 09/12/25 09:28 Chief Complaint: Screening colonoscopy Narrative: This is the patient's 2nd screening colonoscopy. There are no GI symptoms and there is no family history of colorectal cancer. Review of Systems Review of Systems: All systems reviewed & are unremarkable except as noted in HPI and below PMFSH Past Medical History Medical History HLD (hyperlipidemia) Anxiety and depression Depression Surgical History Surgical History Status post total hip replacement, right H/O elbow surgery Family History Family History Father Hypertension Family history of coronary artery disease Social History Social History Social History: The patient is and lives with her . She has 2 children. She works for the [employer]. Lifelong nonsmoker. She does not use any alcohol marijuana or illicit drugs. Code status full code Smoking packs per day: 0.5 Smoking cigarettes per day: 10.0 Years smoked: 7 Smoking pack-years: 3.50 Smoking status: Former smoker Tobacco type: cigarettes Smoking end date: 05/06/95 Alcohol intake: never Substance use: current Substance use type: marijuana Other substance usage details: Occasionally Lack of Transportation: No Lack of Food: Never True Current Housing: I Have Housing Concerned About Future Housing: No Difficulty Paying Gas/Electric Bills: No Difficulty Paying for Meds: No Currently Unemployed: No Education: Don't Know Difficulty w/ Childcare or Family Care: No Living arrangements: with family Additional living arrangements comments: [place] Occupation/Education: occupation Gender identity (if verbalized by the patient): Female Sexual Orientation (if Verbalized by the Patient): Straight or Heterosexual Spiritual care concerns: No Meds Home Medications and Allergies Home Medications ?Medication ?Instructions ?Recorded ?Confirmed ?Type duloxetine 30 mg capsule,delayed 30 mg PO EVERY OTHER DAY 03/31/23 09/12/25 History release (Cymbalta) lamotrigine 150 mg tablet 150 mg PO HS 03/31/23 09/12/25 History sertraline 25 mg tablet 25 mg PO DAILY 02/26/25 09/12/25 History sodium sul 1.479 gram-potas ch See Rx Instructions PO PER PKG DIR 03/05/25 09/12/25 Rx 0.188 gram-magnes sul 0.225 gram #24 tabs tablet (Sutab) atorvastatin 20 mg tablet (Lipitor) 20 mg PO DAILY #90 tabs 06/10/25 09/12/25 Rx Allergies Allergy/AdvReac Type Severity Reaction Status Date / Time No Known Allergies Allergy Verified 09/12/25 08:14 Vital Signs Vital Signs - 24 hr 09/12/25 08:17 Temperature 97 F L Pulse Rate 95 Respiratory Rate 16 Blood Pressure 115/60 Pulse Oximetry 99 Oxygen Delivery Room Air Exam Const: General: cooperative and healthy appearing Resp: Effort & Inspection: normal respiratory effort and able to speak in complete sentences Auscultation: clear to auscultation bilaterally Cardio: Rate: regular rate Rhythm: regular rhythm GI: Inspection: normal to inspection GI Palp: No No hepatosplenomegaly present Auscultation: normal bowel sounds Rectal Exam: deferred Skin: General skin exam: normal color Psych: Appearance: grossly normal Mental Status: mental status grossly normal Assessment and Plan Assessment and plan (1) Encounter for screening colonoscopy: Code(s): Z12.11 - Encounter for screening for malignant neoplasm of colon Status: Acute Assessment and Plan: The patient is deemed a good candidate for the procedure. Consent signed. Will proceed.
--- NOTE | 2025-09-12 09:50 | S_PTH ---
PATIENT: Valerie Rojas LOC: [facility]#:[id number] AGE/SX: 60/F ROOM: RE09/12/[address]: Carson Serrano MD : 1965 BED: DIS: 09/12/2025 SPEC #: [id number] RECD: 09/12/25 11:46 STATUS: IVORY REQ #: [id number] JENI: 09/12/25 09:[address]: Carson Serrano DEPT: [facility] Surgical RECD BY: Marisol Zaldivar ENTERED: 09/12/25 11:47 SP TYPE: Surgical OTHR DR: Ramón Soria MD Tissues: A - Colon Polypectomy Procedures: Hematoxylin and Eosin Stain Gross and Microscopic Level 4
[2025-09-12 09:54] VITALS: BP 115/61; PULSE 75; RESP 19; O2SAT 100
[2025-09-12 10:04] VITALS: BP 127/76; PULSE 65; RESP 21; O2SAT 100
[2025-09-12 10:14] VITALS: BP 130/82; PULSE 60; RESP 21; O2SAT 100
[2025-09-12 10:24] VITALS: BP 128/80; PULSE 60; RESP 18; O2SAT 100
== END 2025-09-12 10:22 | disposition home or self-care (01) ==
PROVIDERS: PCP Family Medicine; Referring Provider Physician Assistant Medical; Visit Provider Internal Medicine Gastroenterology
PROC: 0DJD8ZZ Inspection of Lower Intestinal Tract, Via Natural or Artificial Opening Endoscopic (ICD-10-PCS; CPT 45378; principal; 2025-09-12 09:30)
DX: Z12.11 Encounter for screening for malignant neoplasm of colon (principal); D12.8 Benign neoplasm of rectum; K62.1 Rectal polyp; K57.30 Diverticulosis of large intestine without perforation or abscess without bleeding; F12.90 Cannabis use, unspecified, uncomplicated; Z87.891 Personal history of nicotine dependence
CPT/HCPCS: 45385; 88305; J2003; J2704; J7120